=== PATIENT | female | born 1940 | race Caucasian/White ===

== ENCOUNTER 2023-08-14 10:38 | Observation (INO) | payer OTHER ==
[~2023-08-14] VITALS: Ht 152.4 cm; Wt 47.4 kg
[2023-08-14 11:17] LABS: BASOPHILS ABSOLUTE AUTO 0.04 K/mm3 (0.00-0.23); BASOPHILS PERCENT AUTO 1 % (0-2); EOSINOPHILS ABSOLUTE AUTO 0.08 K/mm3 (0.00-0.68); EOSINOPHILS PERCENT AUTO 1 % (0-6); Hematocrit 37.7 % (33.0-51.0); Hemoglobin 12.3 g/dL (11.5-16.0); IMMATURE GRAN ABSOLUTE AUTO 0.02 K/mm3 (0.00-0.10); IMMATURE GRAN PERCENT AUTO 0 % (0-1); LYMPHOCYTES ABSOLUTE AUTO 1.09 K/mm3 (0.84-5.20); LYMPHOCYTES PERCENT AUTO 13 % (21-46); MONOCYTES ABSOLUTE AUTO 0.47 K/mm3 (0.16-1.47); MONOCYTES PERCENT AUTO 6 % (4-13); Mean Corpuscular HGB 28.9 pg (26.0-34.0); Mean Corpuscular HGB Conc 32.6 g/dL (31.5-36.5); Mean Corpuscular Volume 89 fL (80-100); Mean Platelet Volume 10.4 fL (9.1-12.4); NEUTROPHILS ABSOLUTE AUTO 6.73 K/mm3 (1.96-9.15); NEUTROPHILS PERCENT AUTO 80 % (41-73); Platelet Count 215 K/mm3 (150-400); RDW Coefficient Variation 12.8 % (11.7-14.2); RDW Standard Deviation 41.2 fL (35.1-46.3); Red Blood Cell Count 4.25 M/mm3 (3.80-5.20); White Blood Cell Count 8.43 K/mm3 (4.00-11.30)
[2023-08-14 11:30] LABS: Albumin, Blood 3.2 g/dL (3.4-5.0); Albumin/Globulin Ratio 0.8 (0.8-1.8); Bilirubin, Total 0.8 mg/dL (0.1-1.0); Bun/Creatinine Ratio 37.9 (12.0-20.0); Calcium, Blood 9.3 mg/dL (8.5-10.1); Creatinine, Blood 0.71 mg/dL (0.40-1.00); Potassium, Blood 4.6 mmol/L (3.5-5.5); Total Protein, Blood 7.2 g/dL (6.4-8.2)
[2023-08-14] MEDS ORDERED: Aspirin 325 MG Tab PO ONE (13:15)
[2023-08-14] MEDS ORDERED: Clopidogrel Bisulfate 300 MG Cap PO ONE (13:15)
[2023-08-14] MEDS ORDERED: Acetaminophen 325 MG TABLET PO PRN (13:20)
[2023-08-14] MEDS ORDERED: METOPROLOL TART25 MG PO (14:17)
[2023-08-14] MEDS ORDERED: LOSA50 PO (14:18)
[2023-08-14] MEDS ORDERED: TOLTERODINE TART2 M1 PO (14:18)
[2023-08-14] MEDS ORDERED: FOSAMAX70 MG PO (14:19)
[2023-08-14] MEDS ORDERED: ATORVASTATIN CA20 MG PO (14:20)
[2023-08-14 16:14] VITALS: BP 183/80
--- NOTE | 2023-08-14 16:14 | NUR ---
ADMIT PT ORIENTED TO ROOM. CALL LIGHT IN REACH. WATER PROVIDED. PT DENIES PAIN AT THIS TIME. VS REVIEWED.
[2023-08-14] MEDS ORDERED: Alendronate Sodium 70 MG Tablet PO SCH (16:15)
[2023-08-14] MEDS ORDERED: Flonase 0.05% Nasal (16:18)
[2023-08-14] MEDS ORDERED: Fluticasone 0.05% Nasal Spray PRN (16:20)
[2023-08-14] MEDS ORDERED: ASPIR 8181 M1 PO (17:27)
--- NOTE | 2023-08-14 18:29 | NUR ---
ADMIT PT ADMITTED TO ROOM 357 AT 1611. PT ORIENTED TO ROOM. ECHO COMPLETED IN ROOM UPON ADMISSION. MRI PLANNED FOR THIS EVENING SOMETIME. PT STATES SHE HAS NO PAIN AND IS FEELING "MORE LIKE MYSELF". SPEECH MOSTLY CLEAR, SOME SLURRING. PT STATES THIS IS NORMAL. PT HOPEFUL TO DC TOMORROW. NO OTHER ACUTE CHANGES IN ASSESSMENT AT THIS TIME. VS REVIEWED. CALL LIGHT IN REACH. DENIES OTHER NEEDS AT THIS TIME. PT DAUGHTER, MONA UPDATED OVER THE PHONE.
[2023-08-14 19:26] VITALS: BP 170/81
[2023-08-14] MEDS ORDERED: Docusate Sodium 100 MG Cap PO SCH (21:00)
[2023-08-14] MEDS ORDERED: Atorvastatin 40 MG Tab PO SCH (21:00)
[2023-08-15 03:26] VITALS: BP 144/59
[2023-08-15 04:45] LABS: Hematocrit 36.9 % (33.0-51.0); Hemoglobin 12.3 g/dL (11.5-16.0); Mean Corpuscular HGB 29.1 pg (26.0-34.0); Mean Corpuscular HGB Conc 33.3 g/dL (31.5-36.5); Mean Corpuscular Volume 87 fL (80-100); Mean Platelet Volume 10.2 fL (9.1-12.4); Platelet Count 196 K/mm3 (150-400); RDW Coefficient Variation 12.7 % (11.7-14.2); RDW Standard Deviation 40.2 fL (35.1-46.3); Red Blood Cell Count 4.23 M/mm3 (3.80-5.20); White Blood Cell Count 8.38 K/mm3 (4.00-11.30)
[2023-08-15 05:08] LABS: Anion Gap 8 mmol/L (3-11); Blood Urea Nitrogen 21 mg/dL (8-24); Bun/Creatinine Ratio 33.2 (12.0-20.0); CHOL/HDL RATIO 2.2; CO2, Blood 27 mmol/L (21-32); Calcium, Blood 8.5 mg/dL (8.5-10.1); Chloride, Blood 109 mmol/L (98-108); Cholesterol 107 mg/dL (50-200); Creatinine, Blood 0.63 mg/dL (0.40-1.00); Glomerular Filtration Rate 89 (60-); Glucose, Blood 101 mg/dL (70-99); HDL Cholesterol 49 mg/dL (>39); LDL/HDL RATIO 0.9; Low Density Lipoprotein Chol 44 mg/dL (0-110); Potassium, Blood 3.6 mmol/L (3.5-5.5); Sodium, Blood 140 mmol/L (136-145); Triglycerides 72 mg/dL (30-160); Very Low Density Lipoprot Chol 14 mg/dL (6-32)
[2023-08-15] MEDS ORDERED: Losartan Potassium 50 MG Tab PO SCH (09:00)
[2023-08-15] MEDS ORDERED: Aspirin 81 MG Chew PO SCH (09:00)
[2023-08-15] MEDS ORDERED: Clopidogrel Bisulfate 75 MG Tab PO SCH (09:00)
[2023-08-15] MEDS ORDERED: Enoxaparin 40 MG/0.4 ML SYR SC SCH (09:00)
[2023-08-15] MEDS ORDERED: Metoprolol Tartrate 25 MG Tab PO SCH (09:00)
[2023-08-15 09:24] VITALS: BP 152/85
[2023-08-15] MEDS ORDERED: TOPROL XL25 MG PO (11:19)
[2023-08-15] MEDS ORDERED: CLOP75 PO (11:29)
--- NOTE | 2023-08-15 12:01 | NUR ---
Patient discharged per MD orders, PIV removed and catheter intact, patient verbalized an understanding of all instructions given, written instructions and educational materials also printed and given to patient.
== END 2023-08-15 11:35 | disposition home or self-care (01) ==
LOC: ER 10:38 → MEDS 10:39 → ENPENDDIS 08-15 11:09 → MEDS 08-15 11:35
PROVIDERS: Emergency Medicine; ADMIT Internal Medicine
DX: I63.9 Cerebral infarction, unspecified (principal); I10 Essential (primary) hypertension; E78.00 Pure hypercholesterolemia, unspecified; I25.2 Old myocardial infarction; Z79.82 Long term (current) use of aspirin
CPT/HCPCS: 36415; 70450; 70551; 71045; 80048; 80053; 80061; 82947; 83036; 85025; 85027; 92610; 93005; 93010; 93306; 93880; 97161; 97530; 99285-25; A9270; G0378; J1650

== ENCOUNTER 2024-08-22 11:24 | Day surgery (SDC) | payer OTHER ==
[~2024-08-22] VITALS: Ht 152.4 cm; Wt 46.2 kg
[~2024-08-22 11:24] MED LIST: ASPIR 8181 M1 PO; ATORVASTATIN CA20 MG PO; CLOP75 PO; FOSAMAX70 MG PO; Flonase 0.05% Nasal; LOSA50 PO; METOPROLOL TART25 MG PO; TOLTERODINE TART2 M1 PO; TOPROL XL25 MG PO
[2024-08-22] MEDS ORDERED: CeFAZolin Sodium 2,000 MG VIAL ONE (11:33)
[2024-08-22] MEDS ORDERED: Oxybutynin Chlo10 MG PO (12:12)
[2024-08-22] MEDS ORDERED: Ondansetron HCl 2 MG / ML 2ML Vial ONE (12:58)
[2024-08-22] MEDS ORDERED: FentaNYL Citrate 50 MCG/ML 2 ML Injection ONE ×2 (13:02→13:51)
[2024-08-22] MEDS ORDERED: Bupivacaine 0.5% HCl 5 MG/ML 30MLVIAL XX ONE (13:11)
[2024-08-22] MEDS ORDERED: HydrALAZINE HCl 20 MG / ML 1ML Vial ONE (13:43)
--- NOTE | 2024-08-22 14:35 | NUR ---
08/22/24 1794 Yaz Jeong REPORT RECEIVED FROM MARCELINO AND RN. PT TO PACU ASLEEP WITH ORAL AIRWAY IN PLACE. PT CURRENTLY AROUSABLE TO VERBAL STIMULI AND FOLLOWS COMMANDS, AND ANSWERS QUESTIONS. PT STATES RIGHT BREAST IS "SORE". CURRENTLY DOES NOT RATE PAIN ON NUMERICAL PAIN SCALE. PT DENEIS NAUSEA. VSS.
--- NOTE | 2024-08-22 14:47 | NUR ---
08/22/[id number] briot and verified when patient can restart plavix and when pt can shower. verbal orders received
[2024-08-22] MEDS ORDERED: HYDROcodone 5-APAP 325 TAB ONE (15:23)
[2024-08-22 15:32] VITALS: BP 123/61
== END 2024-08-22 15:58 | disposition home or self-care (01) ==
LOC: ORSCSDS 11:24 → NM 11:30 → ORSCSDS 15:58
PROVIDERS: Surgery
PROC: 07B50ZX Excision of Right Axillary Lymphatic, Open Approach, Diagnostic (ICD-10-PCS; principal; 2024-08-22 12:00)
PROC: 0HBT0ZZ Excision of Right Breast, Open Approach (ICD-10-PCS; principal; 2024-08-22 12:00)
DX: C50.111 Malignant neoplasm of central portion of right female breast (principal); C77.3 Secondary and unspecified malignant neoplasm of axilla and upper limb lymph nodes; Z17.0 Estrogen receptor positive status [ER+]; Z17.21 Progesterone receptor positive status; Z17.32 Human epidermal growth factor receptor 2 negative status; I10 Essential (primary) hypertension; E78.5 Hyperlipidemia, unspecified; Z87.891 Personal history of nicotine dependence; I69.328 Other speech and language deficits following cerebral infarction; I69.398 Other sequelae of cerebral infarction; Z79.899 Other long term (current) drug therapy; Z79.02 Long term (current) use of antithrombotics/antiplatelets
CPT/HCPCS: 38792; 88307; 88342; A9270; A9520; J0360; J0690; J2405; J2704; J3010; J7120; Q9968

== ENCOUNTER 2024-09-04 08:37 | Day surgery (SDC) | payer OTHER ==
[~2024-09-04] VITALS: Ht 152.4 cm; Wt 45.5 kg
[2024-09-04] VITALS (8 sets, daily range): BP systolic 141–180; BP diastolic 65–84
[~2024-09-04 08:37] MED LIST changes: +CeFAZolin Sodium 2,000 MG VIAL ONE; +CeFAZolin Sodium 2,000 MG in NS 100 ML IV SCH; -LOSA50 PO; +LOSARTAN POTAS100 M1 PO; +OXYB5 PO
[2024-09-04] MEDS ORDERED: Ondansetron HCl 2 MG / ML 2ML Vial ONE (09:20)
[2024-09-04] MEDS ORDERED: Ketorolac Tromethamine 30mg Vial ONE (09:20)
[2024-09-04] MEDS ORDERED: FentaNYL Citrate 50 MCG/ML 2 ML Injection ONE (09:20)
[2024-09-04] MEDS ORDERED: Dexamethasone Sod Phos 10 MG/ML 1ML VIAL ONE (09:20)
--- NOTE | 2024-09-04 09:35 | NUR ---
PATIENT ACCOMPANIED TO DAY SURGERY WITH JORDON, WHO IDENTIFIED THEMSELVES A NEIGHBOR AND RIDE HOME. ARIA REQUESTED JORDON TO STAY FOR ADMISSION PROCESS TO KEEP HER COMPANY. History, Chart, Medications and Allergies reviewed before start of procedure. Patient confirms NPO status and agrees with scheduled surgery.
[2024-09-04] MEDS ORDERED: Bupivacaine 0.5% HCl 5 MG/ML 30MLVIAL ONE (10:40)
[2024-09-04] MEDS ORDERED: ePHEDrine Sulfate 50 MG/ML 1ML Injection ONE (11:15)
[2024-09-04] MEDS ORDERED: FentaNYL Citrate 50 MCG/ML 2 ML Injection IV PRN ×2 (11:45→11:50)
[2024-09-04] MEDS ORDERED: HYDROmorphone HCl/Pf 1MG SYR IV PRN (11:50)
[2024-09-04] MEDS ORDERED: Ondansetron HCl 2 MG / ML 2ML Vial IV PRN (11:50)
[2024-09-04] MEDS ORDERED: HydrALAZINE HCl 20 MG / ML 1ML Vial IV PRN (11:50)
[2024-09-04] MEDS ORDERED: Albuterol 2.5 MG/3 ML VIAL INH PRN (11:50)
[2024-09-04] MEDS ORDERED: Metoclopramide HCl 5MG / ML 2ML Vial IV PRN (11:50)
[2024-09-04] MEDS ORDERED: HYDROcodone 5-APAP 325 TAB PO PRN (12:00)
--- NOTE | 2024-09-04 13:13 | NUR ---
DISCHARGE NOTE PT A&OX4, BREATHING RA, TOLERATING PO INTAKE, VSS. PT DRESSED WITH ASSISTANCE. Discharge instructions reviewed with patient. Patient verbalizes understanding. Copy given to patient to take home. Dressing to procedure site clean, dry, intact with no visible drainage, swelling, erythema or bruising noted.BREAST BINDER IN PLACE. Discharged via wheelchair to private car for ride home.
== END 2024-09-04 13:10 | disposition home or self-care (01) ==
LOC: ORSCMMR 08:37 → ORD 10:00 → ORSCMMR 10:00
PROVIDERS: Surgery
PROC: 0HBT0ZZ Excision of Right Breast, Open Approach (ICD-10-PCS; principal; 2024-09-04 10:00)
DX: C50.111 Malignant neoplasm of central portion of right female breast (principal); Z17.0 Estrogen receptor positive status [ER+]; Z17.21 Progesterone receptor positive status; Z17.32 Human epidermal growth factor receptor 2 negative status; I10 Essential (primary) hypertension; E78.5 Hyperlipidemia, unspecified; I63.9 Cerebral infarction, unspecified; Z79.02 Long term (current) use of antithrombotics/antiplatelets; Z79.899 Other long term (current) drug therapy
CPT/HCPCS: 88307; J0690; J1100; J1885; J2405; J2704; J3010; J7120

== ENCOUNTER 2024-12-09 17:23 | Emergency (ER) | payer OTHER ==
[~2024-12-09] VITALS: Ht 157.5 cm; Wt 47.6 kg
[~2024-12-09 17:23] MED LIST changes: -CeFAZolin Sodium 2,000 MG VIAL ONE; -CeFAZolin Sodium 2,000 MG in NS 100 ML IV SCH
[2024-12-09] MEDS ORDERED: ANASTROZOLE1 M7 PO (17:40)
[2024-12-09] MEDS ORDERED: NS 1,000 ML IV SCH (17:50)
[2024-12-09 17:56] LABS: BASOPHILS ABSOLUTE AUTO 0.03 K/mm3 (0.00-0.23); BASOPHILS PERCENT AUTO 1 % (0-2); EOSINOPHILS ABSOLUTE AUTO 0.06 K/mm3 (0.00-0.68); EOSINOPHILS PERCENT AUTO 1 % (0-6); Hematocrit 29.4 % (33.0-51.0); Hemoglobin 9.8 g/dL (11.5-16.0); IMMATURE GRAN ABSOLUTE AUTO 0.02 K/mm3 (0.00-0.10); IMMATURE GRAN PERCENT AUTO 0 % (0-1); LYMPHOCYTES ABSOLUTE AUTO 0.70 K/mm3 (0.84-5.20); LYMPHOCYTES PERCENT AUTO 16 % (21-46); MONOCYTES ABSOLUTE AUTO 0.17 K/mm3 (0.16-1.47); MONOCYTES PERCENT AUTO 4 % (4-13); Mean Corpuscular HGB Conc 33.3 g/dL (31.5-36.5); Mean Corpuscular Volume 88 fL (80-100); NEUTROPHILS ABSOLUTE AUTO 3.51 K/mm3 (1.96-9.15); NEUTROPHILS PERCENT AUTO 78 % (41-73); NRBC ABSOLUTE 0.00 K/mm3 (0.00-0.02); NRBC Auto 0.0 /100 WBC (0.0-0.2); Platelet Count 134 K/mm3 (150-400); RDW Coefficient Variation 14.1 % (11.7-14.2); RDW Standard Deviation 45.1 fL (35.1-46.3)
[2024-12-09 18:26] LABS: Alanine Aminotransfer (ALT/SGP 24.0 U/L (12-78); Albumin, Blood 2.9 g/dL (3.4-5.0); Albumin/Globulin Ratio 0.8 (0.8-1.8); Anion Gap 10.0 mmol/L (3-11); Aspartate Aminotrans (AST/SGOT 24.0 U/L (12-37); Bilirubin, Total 0.8 mg/dL (0.1-1.0); Blood Urea Nitrogen 39.0 mg/dL (8-24); CO2, Blood 23.0 mmol/L (21-32); Calcium, Blood 9.2 mg/dL (8.5-10.1); Chloride, Blood 108.0 mmol/L (98-108); Creatinine, Blood 1.42 mg/dL (0.40-1.00); Globulin, Blood 3.6 g/dL (2.2-4.0); Glucose, Blood 105.0 mg/dL (70-99); Potassium, Blood 3.7 mmol/L (3.5-5.5); Sodium, Blood 137.0 mmol/L (136-145); Total Protein, Blood 6.5 g/dL (6.4-8.2)
[2024-12-09 19:00] VITALS: BP 169/77
== END 2024-12-09 20:33 | disposition home or self-care (01) ==
LOC: ER 17:23
PROVIDERS: Emergency Medicine
DX: N17.9 Acute kidney failure, unspecified (principal); E86.1 Hypovolemia; R19.7 Diarrhea, unspecified; I25.2 Old myocardial infarction; Z86.73 Personal history of transient ischemic attack (TIA), and cerebral infarction without residual deficits; Z85.3 Personal history of malignant neoplasm of breast; Z91.018 Allergy to other foods; Z79.02 Long term (current) use of antithrombotics/antiplatelets; Z79.899 Other long term (current) drug therapy
CPT/HCPCS: 80053; 85025; 93005; 93010; 96360; 99284-25; J7030

== ENCOUNTER 2024-12-10 13:59 | Emergency (ER) | payer OTHER ==
[~2024-12-10] VITALS: Ht 154.9 cm; Wt 45.4 kg
[~2024-12-10 13:59] MED LIST changes: +ANASTROZOLE1 M7 PO
[2024-12-10] MEDS ORDERED: NS 1,000 ML IV SCH (14:15)
[2024-12-10 14:53] LABS: BASOPHILS ABSOLUTE AUTO 0.03 K/mm3 (0.00-0.23); BASOPHILS PERCENT AUTO 1 % (0-2); EOSINOPHILS ABSOLUTE AUTO 0.04 K/mm3 (0.00-0.68); EOSINOPHILS PERCENT AUTO 1 % (0-6); Hematocrit 28.8 % (33.0-51.0); Hemoglobin 9.7 g/dL (11.5-16.0); IMMATURE GRAN ABSOLUTE AUTO 0.03 K/mm3 (0.00-0.10); IMMATURE GRAN PERCENT AUTO 1 % (0-1); LYMPHOCYTES ABSOLUTE AUTO 0.67 K/mm3 (0.84-5.20); LYMPHOCYTES PERCENT AUTO 18 % (21-46); MONOCYTES ABSOLUTE AUTO 0.16 K/mm3 (0.16-1.47); MONOCYTES PERCENT AUTO 4 % (4-13); Mean Corpuscular HGB Conc 33.7 g/dL (31.5-36.5); Mean Corpuscular Volume 87 fL (80-100); NEUTROPHILS ABSOLUTE AUTO 2.78 K/mm3 (1.96-9.15); NEUTROPHILS PERCENT AUTO 75 % (41-73); NRBC ABSOLUTE 0.00 K/mm3 (0.00-0.02); NRBC Auto 0.0 /100 WBC (0.0-0.2); Platelet Count 130 K/mm3 (150-400); RDW Coefficient Variation 13.6 % (11.7-14.2); RDW Standard Deviation 43.7 fL (35.1-46.3)
[2024-12-10 14:57] LABS: Source, Urine Clean Catch
[2024-12-10 15:10] LABS: Bilirubin, Urine Neg (Neg); Color, Urine Yellow (P-Yellow); Glucose Qualitative, Urine Neg (Neg); Ketones, Urine Neg (Neg); Leukocyte Esterase, Urine 1+ (Neg); Protein, Urine Neg (Neg); Specific Gravity, Urine 1.015 (1.003-1.022); Urobilinogen, Urine NORM (Normal)
[2024-12-10 15:31] LABS: Red Blood Cells, Urine 0-2 /hpf (0-2)
[2024-12-10 15:51] LABS: Anion Gap 6.0 mmol/L (3-11); Blood Urea Nitrogen 24.0 mg/dL (8-24); CO2, Blood 25.0 mmol/L (21-32); Calcium, Blood 8.7 mg/dL (8.5-10.1); Chloride, Blood 112.0 mmol/L (98-108); Creatinine, Blood 1.16 mg/dL (0.40-1.00); Glucose, Blood 97.0 mg/dL (70-99); Magnesium, Blood 1.6 mg/dL (1.6-2.4); Potassium, Blood 3.8 mmol/L (3.5-5.5); Sodium, Blood 139.0 mmol/L (136-145); Thyroid Stimulating Hormone 1.28 uIU/mL (0.360-4.800)
[2024-12-10 16:15] VITALS: BP 157/140
== END 2024-12-10 16:41 | disposition home or self-care (01) ==
LOC: ER 13:59
PROVIDERS: Emergency Medicine
DX: E86.0 Dehydration (principal); R42 Dizziness and giddiness; D64.9 Anemia, unspecified; N18.9 Chronic kidney disease, unspecified; I25.2 Old myocardial infarction; Z86.73 Personal history of transient ischemic attack (TIA), and cerebral infarction without residual deficits; Z91.018 Allergy to other foods; Z79.02 Long term (current) use of antithrombotics/antiplatelets; Z79.899 Other long term (current) drug therapy
CPT/HCPCS: 80048; 81001; 82607; 83735; 84439; 84443; 85025; 93005; 93010; 99284-25; J7030

== ENCOUNTER 2024-12-25 17:01 | Inpatient (IN) | payer OTHER ==
[~2024-12-25] VITALS: Ht 152.4 cm; Wt 46.2 kg
[2024-12-25 18:15] LABS: BASOPHILS ABSOLUTE AUTO 0.05 K/mm3 (0.00-0.23); BASOPHILS PERCENT AUTO 1 % (0-2); EOSINOPHILS ABSOLUTE AUTO 0.03 K/mm3 (0.00-0.68); EOSINOPHILS PERCENT AUTO 0 % (0-6); Hematocrit 29.3 % (33.0-51.0); Hemoglobin 10.1 g/dL (11.5-16.0); IMMATURE GRAN ABSOLUTE AUTO 0.06 K/mm3 (0.00-0.10); IMMATURE GRAN PERCENT AUTO 1 % (0-1); LYMPHOCYTES ABSOLUTE AUTO 1.07 K/mm3 (0.84-5.20); LYMPHOCYTES PERCENT AUTO 14 % (21-46); MONOCYTES ABSOLUTE AUTO 0.66 K/mm3 (0.16-1.47); MONOCYTES PERCENT AUTO 8 % (4-13); Mean Corpuscular HGB Conc 34.5 g/dL (31.5-36.5); Mean Corpuscular Volume 85 fL (80-100); NEUTROPHILS ABSOLUTE AUTO 5.96 K/mm3 (1.96-9.15); NEUTROPHILS PERCENT AUTO 76 % (41-73); NRBC ABSOLUTE 0.00 K/mm3 (0.00-0.02); NRBC Auto 0.0 /100 WBC (0.0-0.2); Platelet Count 310 K/mm3 (150-400); RDW Coefficient Variation 14.6 % (11.7-14.2); RDW Standard Deviation 45.2 fL (35.1-46.3)
[2024-12-25 18:59] LABS: Alanine Aminotransfer (ALT/SGP 27.0 U/L (12-78); Albumin, Blood 2.8 g/dL (3.4-5.0); Albumin/Globulin Ratio 0.7 (0.8-1.8); Anion Gap 9.0 mmol/L (3-11); Aspartate Aminotrans (AST/SGOT 27.0 U/L (12-37); Bilirubin, Total 0.7 mg/dL (0.1-1.0); Blood Urea Nitrogen 28.0 mg/dL (8-24); CO2, Blood 27.0 mmol/L (21-32); Calcium, Blood 8.5 mg/dL (8.5-10.1); Chloride, Blood 105.0 mmol/L (98-108); Creatinine, Blood 1.34 mg/dL (0.40-1.00); Globulin, Blood 4.2 g/dL (2.2-4.0); Glucose, Blood 111.0 mg/dL (70-99); Magnesium, Blood 1.9 mg/dL (1.6-2.4); Phosphorus, Blood 2.2 mg/dL (2.5-4.9); Potassium, Blood 2.8 mmol/L (3.5-5.5); Sodium, Blood 138.0 mmol/L (136-145); Total Protein, Blood 7.0 g/dL (6.4-8.2)
[2024-12-25] MEDS ORDERED: Potassium Chl 10MEQ/Water100ML 100 ML IV ONE (21:40)
[2024-12-25] MEDS ORDERED: NS 1,000 ML IV SCH (21:40)
[2024-12-25] MEDS ORDERED: Ondansetron HCl 2 MG / ML 2ML Vial IV ONE (21:45)
[2024-12-26] MEDS ORDERED: OXYB5 PO (02:10)
[2024-12-26] MEDS ORDERED: Ondansetron HCl 2 MG / ML 2ML Vial IV PRN (02:20)
[2024-12-26] MEDS ORDERED: FLU VACC TS2025(65UP)/MF59C/PF 45 MCG/0.5 ML SYRINGE IM SCH (02:25)
[2024-12-26] MEDS ORDERED: NS 1,000 ML IV SCH (02:25)
[2024-12-26] MEDS ORDERED: Potassium Phosphate Dibasic 30 MM in Dextrose 5% 500 ML IV STA (02:44)
[2024-12-26 02:53] VITALS: BP 128/66
[2024-12-26 03:37] LABS: Source, Urine Clean Catch
[2024-12-26 03:51] VITALS: BP 151/86
[2024-12-26 04:14] LABS: Bilirubin, Urine Neg (Neg); Color, Urine Yellow (P-Yellow); Glucose Qualitative, Urine Neg (Neg); Ketones, Urine Neg (Neg); Leukocyte Esterase, Urine 3+ (Neg); Protein, Urine 2+ (Neg); Specific Gravity, Urine 1.010 (1.003-1.022); Urobilinogen, Urine NORM (Normal)
[2024-12-26 04:58] LABS: Red Blood Cells, Urine 0-2 /hpf (0-2); White Blood Cells, Urine TNTC /hpf (0-5)
[2024-12-26 05:29] LABS: BASOPHILS ABSOLUTE AUTO 0.02 K/mm3 (0.00-0.23); BASOPHILS PERCENT AUTO 0 % (0-2); EOSINOPHILS ABSOLUTE AUTO 0.03 K/mm3 (0.00-0.68); EOSINOPHILS PERCENT AUTO 1 % (0-6); Hematocrit 25.5 % (33.0-51.0); Hemoglobin 8.7 g/dL (11.5-16.0); IMMATURE GRAN ABSOLUTE AUTO 0.06 K/mm3 (0.00-0.10); IMMATURE GRAN PERCENT AUTO 1 % (0-1); LYMPHOCYTES ABSOLUTE AUTO 0.59 K/mm3 (0.84-5.20); LYMPHOCYTES PERCENT AUTO 10 % (21-46); MONOCYTES ABSOLUTE AUTO 0.45 K/mm3 (0.16-1.47); MONOCYTES PERCENT AUTO 7 % (4-13); Mean Corpuscular HGB Conc 34.1 g/dL (31.5-36.5); Mean Corpuscular Volume 86 fL (80-100); NEUTROPHILS ABSOLUTE AUTO 4.97 K/mm3 (1.96-9.15); NEUTROPHILS PERCENT AUTO 81 % (41-73); NRBC ABSOLUTE 0.00 K/mm3 (0.00-0.02); NRBC Auto 0.0 /100 WBC (0.0-0.2); Platelet Count 271 K/mm3 (150-400); RDW Coefficient Variation 14.6 % (11.7-14.2); RDW Standard Deviation 45.7 fL (35.1-46.3)
[2024-12-26 05:38] LABS: Prothrombin Time Results 12.6 Sec (9.7-11.5)
[2024-12-26 06:21] LABS: Alanine Aminotransfer (ALT/SGP 22.0 U/L (12-78); Albumin, Blood 2.3 g/dL (3.4-5.0); Albumin/Globulin Ratio 0.7 (0.8-1.8); Anion Gap 5.0 mmol/L (3-11); Aspartate Aminotrans (AST/SGOT 20.0 U/L (12-37); Bilirubin, Total 0.7 mg/dL (0.1-1.0); Blood Urea Nitrogen 26.0 mg/dL (8-24); CO2, Blood 29.0 mmol/L (21-32); Calcium, Blood 7.6 mg/dL (8.5-10.1); Chloride, Blood 107.0 mmol/L (98-108); Creatinine, Blood 1.23 mg/dL (0.40-1.00); Globulin, Blood 3.3 g/dL (2.2-4.0); Glucose, Blood 107.0 mg/dL (70-99); Potassium, Blood 2.8 mmol/L (3.5-5.5); Sodium, Blood 138.0 mmol/L (136-145); Total Protein, Blood 5.6 g/dL (6.4-8.2)
[2024-12-26 06:55] LABS: Influenza A, PCR NEGATIVE (NEGATIVE); Influenza B, PCR NEGATIVE (NEGATIVE); Resp Syncytial Virus, PCR NEGATIVE (NEGATIVE); SARS-Cov-2 (COVID-19) PCR, MMC NEGATIVE (NEGATIVE)
[2024-12-26 08:23] VITALS: BP 124/62
[2024-12-26] MEDS ORDERED: Enoxaparin 30 MG/0.3 ML SYR SC SCH (09:00)
[2024-12-26 11:12] VITALS: BP 113/68
[2024-12-26] MEDS ORDERED: ALEN70 PO (11:19)
[2024-12-26] MEDS ORDERED: CefTRIAXone Sodium 1,000 MG in NS 100 ML IV SCH (15:00)
[2024-12-26 15:40] VITALS: BP 125/74
--- NOTE | 2024-12-26 18:16 | NUR ---
SHIFT SUMMARY PT A&OX4, ON 1L O2 NC, TOLERATING PO, VOIDING URINE, AND DENIED PAIN. PT WORKED W/ PHYSICAL THERAPY THIS SHIFT, SEE THERAPY NOTE. ST EVAL COMPLETE, SEE SPEECH NOTE. ORAL K GIVEN PER ORDER. NO OTHER ACUTE CHANGES. CALL LIGHT WITHIN REACH AND PT ABLE TO MAKE NEEDS KNOWN.
[2024-12-26 20:00] VITALS: BP 139/73
[2024-12-27 00:20] VITALS: BP 113/68
[2024-12-27 04:07] VITALS: BP 112/68
--- NOTE | 2024-12-27 05:53 | NUR ---
FUEL CELL BUILDER SUMMARY NO ACUTE EVENTS. PT IS A/OX4. ABLE TO MAKE NEEDS KNOWN. PT ON TELE WITH NO EVENTS REPORTED OVER NIGHT. PT IS A 1PA TO BSC. BED ALARM IN PLACE. CALL LIGHT ACCESSIBLE. PT HAS NOT HAD A BOWEL MOVEMENT THIS SHIFT. PT REMAINS IN ISO FOR ENTERIC PRECAUTIONS PENDING GI PANEL. STOOL SAMPLE HAS NOT BEEN SENT. CARE WILL CONTINUE UNTIL REPORT GIVEN TO ONCOMING NURSE.
[2024-12-27 07:35] VITALS: BP 109/83
--- NOTE | 2024-12-27 08:27 | NUR ---
PALLIATIVE CARE NOTE: CONSULT RECEIVED FOR CANCER, AD/POLST AND ADVANCED CARE PLANNING. REVIEWED MEDICAL RECORD. NOP POLST/AD ON FILE. FOUND POLST ON OPR WITH DNR/LIMITED DIRECTIVES. PT IS CURRENTL A FULL CODE. WILL ROUND ON PT TODAY.
--- NOTE | 2024-12-27 09:07 | NUR ---
ROUNDED ON PATIENT. SHE HAS A POLST ON FILE THAT REFLECTED DNR AND LIMITED INTERVENTION. REVIEWED WITH PATIENT AND SHE EXPRESSED THAT THIS IS STILL REFLECTS HER WISHES. UPDATED PROVIDER AND CODE STATUS CHANGED IN COMPUTER. UPDATED SURGICAL NURSE PRACTITIONER AND BSRN.
[2024-12-27 12:27] VITALS: BP 121/69
[2024-12-27 15:44] VITALS: BP 131/68
[2024-12-27] MEDS ORDERED: FentaNYL Citrate 50 MCG/ML 2 ML Injection IV PRN (17:35)
[2024-12-27] MEDS ORDERED: Multivitamins-Minerals Liquid 15 ML Oral Syringe PO SCH (18:05)
--- NOTE | 2024-12-27 18:09 | NUR ---
PATIENT RESTED IN BED MOST OF DAY UP TO COMMODE NEEDED. PATIENT URINATED THIS AM THEN NOTHING MOST OF SHIFT, BLADDER SCAN DONE RESULTS LESS THAN ORDER FOR STRAIGHT CATH. PATIENT ABLE TO GO SHORTLY AFTER. PATIENT HOPEFULL FOR DISCHARGE TOMORROW BASED ON LABS. CALL LIGHT WITHIN REACH.
[2024-12-27 18:30] LABS: Hematocrit 27.0 % (33.0-51.0); Hemoglobin 9.2 g/dL (11.5-16.0); Mean Corpuscular HGB Conc 34.1 g/dL (31.5-36.5); Mean Corpuscular Volume 86 fL (80-100); NRBC ABSOLUTE 0.00 K/mm3 (0.00-0.02); NRBC Auto 0.0 /100 WBC (0.0-0.2); Platelet Count 275 K/mm3 (150-400); RDW Coefficient Variation 14.6 % (11.7-14.2); RDW Standard Deviation 46.0 fL (35.1-46.3)
[2024-12-27 18:54] LABS: BAND PERCENT MAN 7 % (0-8); BASOPHILS ABSOLUTE MAN 0.05 K/mm3 (0.00-0.23); BASOPHILS PERCENT MAN 1 % (0-2); EOSINOPHILS ABSOLUTE MAN 0.00 K/mm3 (0.00-0.68); EOSINOPHILS PERCENT MAN 0 % (0-6); LYMPHOCYTES % ATYPICAL MANUAL 1 % (0-0); LYMPHOCYTES ABSOLUTE MAN 0.60 K/mm3 (0.84-5.20); LYMPHOCYTES PERCENT MAN 11 % (21-46); MONOCYTES ABSOLUTE MAN 0.60 K/mm3 (0.16-1.47); MONOCYTES PERCENT MAN 12 % (4-13); NEUTROPHILS ABSOLUTE MAN 3.78 K/mm3 (1.96-9.15); SEG NEUTROPHILS PERCENT MAN 68 % (41-73)
[2024-12-27 19:00] LABS: Alanine Aminotransfer (ALT/SGP 28.0 U/L (12-78); Albumin, Blood 2.2 g/dL (3.4-5.0); Albumin/Globulin Ratio 0.6 (0.8-1.8); Anion Gap 6.0 mmol/L (3-11); Aspartate Aminotrans (AST/SGOT 31.0 U/L (12-37); Bilirubin, Total 0.5 mg/dL (0.1-1.0); Blood Urea Nitrogen 16.0 mg/dL (8-24); CO2, Blood 29.0 mmol/L (21-32); Calcium, Blood 7.8 mg/dL (8.5-10.1); Chloride, Blood 109.0 mmol/L (98-108); Creatinine, Blood 0.8 mg/dL (0.40-1.00); Globulin, Blood 3.6 g/dL (2.2-4.0); Glucose, Blood 119.0 mg/dL (70-99); Magnesium, Blood 1.4 mg/dL (1.6-2.4); Potassium, Blood 3.7 mmol/L (3.5-5.5); Sodium, Blood 140.0 mmol/L (136-145); Total Protein, Blood 5.8 g/dL (6.4-8.2)
[2024-12-27 22:51] VITALS: BP 134/74
[2024-12-28] MEDS ORDERED: Magnesium Sulf 2 GM/Water 50ML 50 ML IV ONE (00:10)
[2024-12-28 00:24] VITALS: BP 131/86
--- NOTE | 2024-12-28 02:38 | NUR ---
GI PANEL DISCONTUNIED PER PROTOCOL PT ADMIT ON 12/26/24 REPORTING N/V/D. PT HAS NOT HAD A BM SINCE ADMIT TO THE MED FLOOR IN OVER 24 HOURS. GI PANEL D/C PER PROTOCOL. R/O ISOLATION DISCONTINUED.
--- NOTE | 2024-12-28 05:25 | NUR ---
SHIFT SUMMARY REPORTS B/L LOW ABDOMINAL PRESSURE-LIKE PAIN RELATED TO CONSTIPATION, DECLINING MEDICATION PER EMAR. DOES HAVE BENEFIT FROM HEATING PAD. DECLINED EVENING PROBIOTIC. DISPOSITION SOFTENS WHEN DISCUSSING RETURNING HOME IN AM. REPORTS IRRITABILITY WITH BEING IN HOSPITAL. IV MG REPLACEMENT THIS EVENING. PT AMBULATORY WITH SBA USING FWW TO RESTROOM, GAIT IS STEADY. A&OX4, MAKES NEEDS KNOWN. FAIRING WELL WITH SMALL, BITE SIZED DIET, NO STRAW. REMAINS SR WITH BBB, RATE IN 80S ON TELEMETRY. NO HYPOXIC EVENTS ON CONTINUOUS PULSE OX WHILE ON ROOM AIR. SINGLE EPISODE OF R NARIS EPISTAXIS QUICKLY RESOLVES.
[2024-12-28 05:55] VITALS: BP 122/67
[2024-12-28 07:16] VITALS: BP 129/85
--- NOTE | 2024-12-28 07:22 | NUR ---
THIS RN WITNESS PT REFUSING MORNING LAB DRAWS AFTER ATTEMTPING PERSUASION. PT REPLIED TO PHLEBOTOMISTS "YOU CAN KISS MY MIDDLE FINGER". NURSING STAFF EDUCATED THAT ALL PT NEEDS TO SAY IS "NO" AND THAT IS FINE.
[2024-12-28 12:21] VITALS: BP 122/88
[2024-12-28] MEDS ORDERED: MAGNESIUM OXID500 MG PO (12:21)
[2024-12-28] MEDS ORDERED: MULTIVITAM PO (12:24)
[2024-12-28] MEDS ORDERED: VITAMIN B-1100 M2 PO (12:25)
[2024-12-28] MEDS ORDERED: POTA10T PO (12:26)
[2024-12-28] MEDS ORDERED: CEPH500 PO (12:26)
[2024-12-28] MEDS ORDERED: CefTRIAXone Sodium 1,000 MG in NS 100 ML IV SCH (13:00)
--- NOTE | 2024-12-28 14:19 | NUR ---
DISCHARGE PT AOX4, SEMI COOPERATIVE, ABLE TO MAKE NEEDS KNOWN. PT IS SBA IN ROOM, ON ROOM AIR, WAS ON TELE. PT DOES HAVE RUDE BAVIOR EPISODES AND IS RESISTANT WITH CARE AT TIMES. FAMILY BEDSIDE MOST OF SHIFT. TELE AND IV'S DC'D BY THIS RN WIHTOUT EVENTS. PT TRANSPORTED DOWN TO PT ENTRANCE BY SPAR FINISHER. BELONGINGS WENT WITH PT AND FAMILY.
== END 2024-12-28 14:10 | disposition home or self-care (01) | DRG 682 ==
LOC: ER 17:01 → MEDS 12-26 01:20 → ENPENDDIS 12-28 11:59 → MEDS 12-28 14:10
PROVIDERS: Internal Medicine; Student in an Organized Health Care Education/Training Program; ADMIT Internal Medicine
DX: N17.9 Acute kidney failure, unspecified (principal); E43 Unspecified severe protein-calorie malnutrition; N39.0 Urinary tract infection, site not specified; I13.0 Hypertensive heart and chronic kidney disease with heart failure and stage 1 through stage 4 chronic kidney disease, or unspecified chronic kidney disease; Z68.1 Body mass index [BMI] 19.9 or less, adult; K52.9 Noninfective gastroenteritis and colitis, unspecified; E87.6 Hypokalemia; D63.1 Anemia in chronic kidney disease; N18.9 Chronic kidney disease, unspecified; E83.39 Other disorders of phosphorus metabolism; Z66 Do not resuscitate; E78.5 Hyperlipidemia, unspecified; I50.9 Heart failure, unspecified; B96.20 Unspecified Escherichia coli [E. coli] as the cause of diseases classified elsewhere; C50.919 Malignant neoplasm of unspecified site of unspecified female breast; E83.42 Hypomagnesemia; D51.0 Vitamin B12 deficiency anemia due to intrinsic factor deficiency; Z79.899 Other long term (current) drug therapy; Z86.73 Personal history of transient ischemic attack (TIA), and cerebral infarction without residual deficits; E88.09 Other disorders of plasma-protein metabolism, not elsewhere classified; Z91.018 Allergy to other foods; Z91.0110 Allergy to milk products, unspecified; Z23 Encounter for immunization
CPT/HCPCS: 36415; 51702; 51798; 71275; 80053; 81001; 83735; 83880; 84100; 84484; 85025; 85379; 85610; 87077; 87086; 87186; 87637; 92610; 93005; 93010; 93306; 94762; 96361; 96365; 96375; 97161; 97165; 97530; 99285-25; A9270; J0696; J2405; J3475; J3480; J7030; J7060; Q9967

== ENCOUNTER 2025-01-06 09:56 | Inpatient (IN) | payer OTHER ==
[2025-01-06] VITALS (12 sets, daily range): BP systolic 102–154; BP diastolic 56–80
[~2025-01-06] VITALS: Ht 152.4 cm; Wt 50.3 kg
[~2025-01-06 09:56] MED LIST changes: +ALEN70 PO; +CEPH500 PO; +MAGNESIUM OXID500 MG PO; +MULTIVITAM PO; +POTA10T PO; +VITAMIN B-1100 M2 PO
[2025-01-06 10:20] LABS: BASOPHILS ABSOLUTE AUTO 0.02 K/mm3 (0.00-0.23); BASOPHILS PERCENT AUTO 0 % (0-2); EOSINOPHILS ABSOLUTE AUTO 0.00 K/mm3 (0.00-0.68); EOSINOPHILS PERCENT AUTO 0 % (0-6); Hematocrit 28.5 % (33.0-51.0); Hemoglobin 9.4 g/dL (11.5-16.0); IMMATURE GRAN ABSOLUTE AUTO 0.08 K/mm3 (0.00-0.10); IMMATURE GRAN PERCENT AUTO 1 % (0-1); LYMPHOCYTES ABSOLUTE AUTO 0.96 K/mm3 (0.84-5.20); LYMPHOCYTES PERCENT AUTO 10 % (21-46); MONOCYTES ABSOLUTE AUTO 0.49 K/mm3 (0.16-1.47); MONOCYTES PERCENT AUTO 5 % (4-13); Mean Corpuscular HGB Conc 33.0 g/dL (31.5-36.5); Mean Corpuscular Volume 89 fL (80-100); NEUTROPHILS ABSOLUTE AUTO 8.58 K/mm3 (1.96-9.15); NEUTROPHILS PERCENT AUTO 85 % (41-73); NRBC ABSOLUTE 0.00 K/mm3 (0.00-0.02); NRBC Auto 0.0 /100 WBC (0.0-0.2); Platelet Count 289 K/mm3 (150-400); RDW Coefficient Variation 15.0 % (11.7-14.2); RDW Standard Deviation 49.2 fL (35.1-46.3)
[2025-01-06] MEDS ORDERED: NS 1,000 ML IV SCH (10:30)
[2025-01-06 10:51] LABS: Alanine Aminotransfer (ALT/SGP 28.0 U/L (12-78); Albumin, Blood 2.0 g/dL (3.4-5.0); Albumin/Globulin Ratio 0.5 (0.8-1.8); Anion Gap 8.0 mmol/L (3-11); Aspartate Aminotrans (AST/SGOT 33.0 U/L (12-37); Bilirubin, Total 0.8 mg/dL (0.1-1.0); Blood Urea Nitrogen 21.0 mg/dL (8-24); CO2, Blood 27.0 mmol/L (21-32); Calcium, Blood 8.3 mg/dL (8.5-10.1); Chloride, Blood 111.0 mmol/L (98-108); Creatinine, Blood 0.78 mg/dL (0.40-1.00); Globulin, Blood 4.2 g/dL (2.2-4.0); Glucose, Blood 83.0 mg/dL (70-99); Potassium, Blood 4.3 mmol/L (3.5-5.5); Sodium, Blood 142.0 mmol/L (136-145); Total Protein, Blood 6.2 g/dL (6.4-8.2)
[2025-01-06 10:52] LABS: Magnesium, Blood 2.3 mg/dL (1.6-2.4); Phosphorus, Blood 2.0 mg/dL (2.5-4.9)
[2025-01-06 11:10] LABS: Influenza A, PCR NEGATIVE (NEGATIVE); Influenza B, PCR NEGATIVE (NEGATIVE); Resp Syncytial Virus, PCR NEGATIVE (NEGATIVE); SARS-Cov-2 (COVID-19) PCR, MMC NEGATIVE (NEGATIVE)
[2025-01-06] MEDS ORDERED: FLU VACC TS2025(65UP)/MF59C/PF 45 MCG/0.5 ML SYRINGE IM SCH (14:00)
[2025-01-06] MEDS ORDERED: FentaNYL Citrate 50 MCG/ML 2 ML Injection ONE (14:18)
[2025-01-06] MEDS ORDERED: CeFAZolin Sodium 2,000 MG in NS 100 ML IV SCH (14:20)
[2025-01-06] MEDS ORDERED: MetroNIDAZOLE 500MG/NS 100 ml 100 ML IV SCH (14:20)
[2025-01-06] MEDS ORDERED: Bupivacaine 0.25% Epi 1:200000 30 ML Vial ONE (14:23)
[2025-01-06] MEDS ORDERED: Ondansetron HCl 2 MG / ML 2ML Vial IV PRN ×2 (14:45→18:35)
[2025-01-06] MEDS ORDERED: FentaNYL Citrate 50 MCG/ML 2 ML Injection IV PRN (14:45)
[2025-01-06] MEDS ORDERED: HYDROmorphone HCl/Pf 1MG SYR IV PRN ×2 (14:45→18:35)
[2025-01-06] MEDS ORDERED: FentaNYL Citrate 50 MCG/ML 5 ML Injection ONE (15:24)
[2025-01-06] MEDS ORDERED: Sodium Phosphate 15 MM in Dextrose 5% 250 ML IV SCH (16:30)
[2025-01-06] MEDS ORDERED: Sugammadex Sodium 200 MG/2ML SDV (100 MG/ML) ONE (17:19)
[2025-01-06] MEDS ORDERED: Ondansetron HCl 2 MG / ML 2ML Vial ONE (17:23)
[2025-01-06] MEDS ORDERED: Dexamethasone Sod Phos 10 MG/ML 1ML VIAL ONE (17:23)
--- NOTE | 2025-01-06 18:54 | NUR ---
PT ARRIVED TO ROOM 229 FROM PACU. TRANSFERRED PT FROM [facility] TO BED. BED ALARM ON. CALL LIGHT IN REACH. PT VERY SLEEPY; SHOOK HEAD NO WHEN ASKED IF IN PAIN OR HAD NAUSEA THEN RETURNED TO SLEEP. MIDLINE DRESSING HAS MOD AMT SHADOWING ON IT. OSTOMY HAS BROWN LIQUID OUTPUT. HIMA DRAIN HAS SS DRAINAGE NOTED.
--- NOTE | 2025-01-06 19:39 | NUR ---
REPORT GIVEN TO ONCOMING RN.
[2025-01-06 20:16] LABS: Hematocrit 27.5 % (33.0-51.0); Hemoglobin 8.9 g/dL (11.5-16.0)
[2025-01-06] MEDS ORDERED: Ampicillin Sod/Sulbactam Sod 3 GM in NS 100 ML IV SCH (23:00)
[2025-01-07 03:01] VITALS: BP 94/72
[2025-01-07 03:13] VITALS: BP 103/59
--- NOTE | 2025-01-07 03:43 | NUR ---
SHIFT SUMMARY POD 1 S/P SIGMOID COLECTOMY. OSTOMY PRODUCING SOFT BROWN STOOL, EMPTIED 3X DURING NIGHT; APPLIANCE CDI. HIMA TO RIGHT ABD INTACT, DRAINING SS FLUID. LEAKING NOTED AROUND HIMA INSERTION SITE, DRESSING REINFORCED WITH EXU DRY AND TAPE. HR NSR 70-80'S BPM PER CLEARING HOUSE CLERK, PT DENIES CHEST PAIN/PRESSURE. SPO2 AT 96% ON 1NC WHILE SLEEPING. PAIN MANAGED PER EMAR, MEDICATED X 1 FOR PAIN. PT DROWSY POST PAIN MEDICATION ADMINISTRATION, ABLE TO MAKE NEEDS KNOWN AND AWAKENS EASILY. POOR PO INTAKE, ENCOURAGED FREQUENTLY. PT ONLY TAKING IN WATER AT THIS TIME, DENIES CL OPTIONS. DWYER TO GRAVITY DRAIN, YELLOW URINE NOTED IN BAG. AWAITING FIRST OOB AMBULATION. ABX INFUSED PER ORDERS. IV X 2 PATENT/SL. PT CURRENTLY RESTING IN BED WITH CALL LIGHT IN REACH, BED ALARM ON FOR SAFETY, AND RESP EVEN/UNLABORED. WILL GIVE REPORT TO ONCOMING RN.
[2025-01-07 04:55] LABS: BASOPHILS ABSOLUTE AUTO 0.03 K/mm3 (0.00-0.23); BASOPHILS PERCENT AUTO 0 % (0-2); EOSINOPHILS ABSOLUTE AUTO 0.00 K/mm3 (0.00-0.68); EOSINOPHILS PERCENT AUTO 0 % (0-6); Hematocrit 22.9 % (33.0-51.0); Hemoglobin 7.7 g/dL (11.5-16.0); IMMATURE GRAN ABSOLUTE AUTO 0.14 K/mm3 (0.00-0.10); IMMATURE GRAN PERCENT AUTO 1 % (0-1); LYMPHOCYTES ABSOLUTE AUTO 0.59 K/mm3 (0.84-5.20); LYMPHOCYTES PERCENT AUTO 4 % (21-46); MONOCYTES ABSOLUTE AUTO 0.23 K/mm3 (0.16-1.47); MONOCYTES PERCENT AUTO 2 % (4-13); Mean Corpuscular HGB Conc 33.6 g/dL (31.5-36.5); Mean Corpuscular Volume 88 fL (80-100); NEUTROPHILS ABSOLUTE AUTO 12.90 K/mm3 (1.96-9.15); NEUTROPHILS PERCENT AUTO 93 % (41-73); NRBC ABSOLUTE 0.00 K/mm3 (0.00-0.02); NRBC Auto 0.0 /100 WBC (0.0-0.2); Platelet Count 303 K/mm3 (150-400); RDW Coefficient Variation 15.3 % (11.7-14.2); RDW Standard Deviation 48.7 fL (35.1-46.3)
[2025-01-07 05:25] LABS: Alanine Aminotransfer (ALT/SGP 21.0 U/L (12-78); Albumin, Blood 1.6 g/dL (3.4-5.0); Albumin/Globulin Ratio 0.5 (0.8-1.8); Anion Gap 8.0 mmol/L (3-11); Aspartate Aminotrans (AST/SGOT 27.0 U/L (12-37); Bilirubin, Total 0.6 mg/dL (0.1-1.0); Blood Urea Nitrogen 18.0 mg/dL (8-24); CO2, Blood 27.0 mmol/L (21-32); Calcium, Blood 6.8 mg/dL (8.5-10.1); Chloride, Blood 114.0 mmol/L (98-108); Creatinine, Blood 0.75 mg/dL (0.40-1.00); Globulin, Blood 3.1 g/dL (2.2-4.0); Glucose, Blood 161.0 mg/dL (70-99); Phosphorus, Blood 4.3 mg/dL (2.5-4.9); Potassium, Blood 3.8 mmol/L (3.5-5.5); Sodium, Blood 145.0 mmol/L (136-145); Total Protein, Blood 4.7 g/dL (6.4-8.2)
[2025-01-07] MEDS ORDERED: NS 250 ML IV PRN (05:25)
[2025-01-07] MEDS ORDERED: FentaNYL Citrate 50 MCG/ML 2 ML Injection IV PRN (07:20)
[2025-01-07] MEDS ORDERED: D5W-1/2NS 1,000 ML IV SCH (07:25)
[2025-01-07 07:39] VITALS: BP 107/58
[2025-01-07] MEDS ORDERED: Enoxaparin 40 MG/0.4 ML SYR SC SCH (09:00)
[2025-01-07 12:15] LABS: Hematocrit 23.4 % (33.0-51.0); Hemoglobin 7.9 g/dL (11.5-16.0)
[2025-01-07] MEDS ORDERED: Oxybutynin Chlo15 MG PO (12:46)
[2025-01-07 15:18] VITALS: BP 99/54
--- NOTE | 2025-01-07 17:53 | NUR ---
SUMMARY NO ACUTE CHANGES T/O SHIFT. PT SIPPING CLEARS. OSTOMY HAVING BROWN UNFORMED OUTPUT. HIMA PUTTING OUT SS DRAINAGE. PT CATHETER DC'D THIS AFTERNOON. PUREWICK PLACED. PT UNABLE TO GET OOB TODAY D/T WEAKNESS. UNABLE TO LIFT LEGS OFF BED. REPOSITIONED T/O DAY AND PROTECTIVE MEPILEX PLACED TO COCCYX THIS AFTERNOON. PT'S EXTREMITIES COOL TO TOUCH, DIFFICULT TO GET GOOD READING ON OXIMETRY WITH VARIETY OF PROBES. PT DENIES FEELING COLD. CALL LIGHT IN REACH.
[2025-01-07 19:22] VITALS: BP 106/62
[2025-01-07 22:48] VITALS: BP 106/58
--- NOTE | 2025-01-08 00:31 | NUR ---
PROVIDER NOTIFIED 3+ PITTING EDEMA TO BLE WITH DUSKY/PURPLE TOES AND FINGER TIPS NOTED. PEDAL PULSES DOPPLER ONLY. SX NOT RELIEVED FROM WARM THERAPY. PT UNSURE BUT BELIEVES SX MAY BE "NORMAL FOR ME." DENIES CALF PAIN OR N/T. HOSPITALIST NOTIFIED. NO ORDERS AT THIS TIME, PLAN FOR POSSIBLE U/S DURING DAY SHIFT.
--- NOTE | 2025-01-08 04:11 | NUR ---
SHIFT SUMMARY POD 2 SIGMOID COLECTOMY W/ OSTOMY. OSTOMY PRODUCING BROWN LIQUID OUTPUT. NEW APPLIANCE APPLIED AND HIMA/MIDLINE DRESSING CHANGED THIS SHIFT DUE TO OSTOMY APPLIANCE LEAKING. HIMA DRAIN PATENT W/SS DRAINAGE. MIDLINE INCISION C/D/I. PT DENIES PAIN. PT C/O NAUSEA, MEDICATED PER EMAR WITH PT REPORTING RELIEF OF SYMPTOMS. PUREWICK IN PLACE AND DRAINING TO LOW SUCTION. DECREASED PERFUSION TO EXTREMITIES W/ +3 EDEMA TO BLE, UNABLE TO PALPATE PEDAL PULSES, LOCATED WITH DOPPLER. BILATERAL HEELS RED AND BLANCHABLE. BLE ELEVATED AND BILATERAL HEELS FLOATED. SR @89 W/BBB PER TELETECH. CONT PULSE OX IN PLACE SPO2 94% ON 2L O2 VIA NC. PT RESTING IN BED, RESPIRATION EVEN AND UNLABORED. CALL LIGHT WITHIN REACH.
[2025-01-08 04:35] VITALS: BP 113/65
--- NOTE | 2025-01-08 07:19 | NUR ---
PROVIDER UPDATED DR. ALBERTO GARCIA, NOTIFIED OF PATIENT'S CURRENT STATUS- POOR PO INTAKE,POSSIBLE SWALLOWING COMPLICATION, DECREASED URINARY OUTPUT, 3+ EDEMA TO BLE, PROLONGED QT OF 5.0, DUSKY/RED FINGERS AND TOES. NO NEW ORDERS AT THIS TIME. DAY RN AWARE.
[2025-01-08 07:22] VITALS: BP 119/78
[2025-01-08 07:44] LABS: BASOPHILS ABSOLUTE AUTO 0.02 K/mm3 (0.00-0.23); BASOPHILS PERCENT AUTO 0 % (0-2); EOSINOPHILS ABSOLUTE AUTO 0.02 K/mm3 (0.00-0.68); EOSINOPHILS PERCENT AUTO 0 % (0-6); Hematocrit 23.4 % (33.0-51.0); Hemoglobin 8.0 g/dL (11.5-16.0); IMMATURE GRAN ABSOLUTE AUTO 0.10 K/mm3 (0.00-0.10); IMMATURE GRAN PERCENT AUTO 1 % (0-1); LYMPHOCYTES ABSOLUTE AUTO 1.13 K/mm3 (0.84-5.20); LYMPHOCYTES PERCENT AUTO 9 % (21-46); MONOCYTES ABSOLUTE AUTO 0.64 K/mm3 (0.16-1.47); MONOCYTES PERCENT AUTO 5 % (4-13); Mean Corpuscular HGB Conc 34.2 g/dL (31.5-36.5); Mean Corpuscular Volume 86 fL (80-100); NEUTROPHILS ABSOLUTE AUTO 11.24 K/mm3 (1.96-9.15); NEUTROPHILS PERCENT AUTO 85 % (41-73); NRBC ABSOLUTE 0.00 K/mm3 (0.00-0.02); NRBC Auto 0.0 /100 WBC (0.0-0.2); Platelet Count 373 K/mm3 (150-400); RDW Coefficient Variation 15.3 % (11.7-14.2); RDW Standard Deviation 48.1 fL (35.1-46.3)
[2025-01-08 07:50] LABS: Alanine Aminotransfer (ALT/SGP 21.0 U/L (12-78); Albumin, Blood 1.7 g/dL (3.4-5.0); Albumin/Globulin Ratio 0.5 (0.8-1.8); Anion Gap 8.0 mmol/L (3-11); Aspartate Aminotrans (AST/SGOT 30.0 U/L (12-37); Bilirubin, Total 0.4 mg/dL (0.1-1.0); Blood Urea Nitrogen 16.0 mg/dL (8-24); CO2, Blood 27.0 mmol/L (21-32); Calcium, Blood 6.7 mg/dL (8.5-10.1); Chloride, Blood 109.0 mmol/L (98-108); Creatinine, Blood 0.82 mg/dL (0.40-1.00); Globulin, Blood 3.5 g/dL (2.2-4.0); Glucose, Blood 113.0 mg/dL (70-99); Potassium, Blood 2.8 mmol/L (3.5-5.5); Sodium, Blood 141.0 mmol/L (136-145); Total Protein, Blood 5.2 g/dL (6.4-8.2)
[2025-01-08] MEDS ORDERED: Metoclopramide HCl 5MG / ML 2ML Vial IV PRN (08:00)
[2025-01-08] MEDS ORDERED: Enoxaparin 40 MG/0.4 ML SYR SC SCH (09:00)
[2025-01-08] MEDS ORDERED: Potassium Chl 20MEQ/Water100ML 100 ML IV SCH (10:10)
[2025-01-08 14:09] VITALS: BP 114/62
[2025-01-08 16:38] LABS: Anion Gap 7.0 mmol/L (3-11); Blood Urea Nitrogen 16.0 mg/dL (8-24); CO2, Blood 26.0 mmol/L (21-32); Calcium, Blood 6.8 mg/dL (8.5-10.1); Chloride, Blood 108.0 mmol/L (98-108); Creatinine, Blood 0.92 mg/dL (0.40-1.00); Glucose, Blood 126.0 mg/dL (70-99); Potassium, Blood 2.9 mmol/L (3.5-5.5); Sodium, Blood 138.0 mmol/L (136-145)
--- NOTE | 2025-01-08 18:26 | NUR ---
SHIFT SUMMARY POD2 SIGMOID COLECTOMY WITH NEW OSTOMY, A/OX4, VSS, TOLERATING PO THOUGH HER INTAKE HAS BEEN MINIMAL, NO URINE OUTPUT, SHE HAD A BLADDER SCAN OF 377 AT 1730, DISCUSSED RISKS OF TOO MUCH URINE IN HER BLADDER AND POSSIBLE NEXT STEPS. SHE HAD OUTPUT FROM HER OSTOMY TODAY AND SOME FLATUS. SHE STATES FEELING TIRED TODAY BUT SHE WAS ABLE TO WORK WITH PT AND OT THIS AM. WILL DISCUSS BLADDER SCAN RESULTS WITH NOC RN. NO OTHER EVENTS THIS SHIFT, CALL LIGHT IN REACH.
--- NOTE | 2025-01-08 19:14 | NUR ---
URINE UPDATE SPOKE WITH POWER REGULATOR HOSPITALIST REGARDING ON URINE OUTPUT TODAY, DISCUSSED THE TWO BLADDER SCANS OF 250 AND 377 DONE BY YARIEL CANADA AND MAURICIO RN RESPECTIVELY. PER MD WILL WAIT 2 HOURS AND SEE IF SHE VOIDS AND IF NOT, POSSIBLE STRAIGHT CATH AT THAT TIME. WILL CONTINUE CURRENT FLUIDS UNDER CURRENT RATE.
[2025-01-08 20:39] VITALS: BP 129/56
--- NOTE | 2025-01-08 22:40 | NUR ---
DRESSING CHANGE IHMA LEAKING SS FLUID AROUND INSERTION SITE, DRESSING CHANGE COMPLETE AND REDNESS NOTED AROUND SUTURES. MIDLINE DRESSING REPLACED DUE TO STOOL FROM OSTOMY LEAKING, MIDLINE KATERINE IN PLACE. OSTOMY APPLIANCE ALSO REPLACED. PT TOLERATED WELL, DENIED NEED FOR PAIN MEDICATION. STOMA BEEFY RED IN COLOR.
[2025-01-09 03:18] VITALS: BP 110/67
--- NOTE | 2025-01-09 03:50 | NUR ---
N/V UPDATE AT APPROX 0305 RN CALLED TO ROOM WHERE CHAIR POST MACHINE OPERATOR WAS HOLDING EMESIS BAG WHILE PT VOMITED 100MLS OF FLUID WITH SOLIDS. PT REPORTS IT WAS FROM "THAT DAMN DINNER. THE FOOD IS TERRIBLE." PT DECLINED ANTIEMETIC. COOL WASH CLOTH AND WATER PROVIDED. PT DENIES SOB, CP, N/T. TEMP OF 99.5 NOTED WITH VITALS ASSESSMENT. PT REFUSED TO ALLOW RN TO REMOVE BLANKETS, HEAT TURNED DOWN IN ROOM. AT THIS TIME, PT DENIES NAUSEA. BLE ELEVATED ON PILLOW. HIMA EMPTIED BY CHAIR POST MACHINE OPERATOR, DRESSING CDI. HAS CALL LIGHT IN REACH. WILL CONT PLAN OF CARE AND MONITOR TEMPERATURE.
[2025-01-09 06:16] VITALS: BP 97/61
--- NOTE | 2025-01-09 06:30 | NUR ---
SHIFT SUMMARY POD 3 S/P SIGMOID COLECTOMY WITH OSTOMY. OSTOMY APPLIANCE CHANGED DUE TO LEAKING, NOW CDI. LIQUID, MUCUS APPEARING STOOL NOTED IN BAG. STOMA BEEFY RED, SKIN INTACT AROUND STOMA AND UNDER APPLIANCE. MIDLINE DRESSING CHANGED, KATERINE INTACT. HIMA DRAINING SS FLUID, BULB COMPRESSED BUT CONT TO LEAK SS FLUID AROUND INSERTION SITE. REDNESS NOTED AROUND SUTURES AT INSERTION OF HIMA, DRESSING ALSO CHANGE. STRAIGHT CATH FOR RETENTION, AWAITING VOID. 1 EPISODE OF N/V. STILL HAS REDNESS/PURPLE TOES, REDNESS IN FINGER TIPS HAS DECREASED. HEELS FLOATED FOR COMFORT. IVF AND ABX INFUSING PER ORDERS. REPORTS PAIN AT TOLERABLE LEVEL, DENIED PAIN MEDS. PT CURRENTLY RESTING IN BED WITH CALL LIGHT IN REACH. WILL GIVE REPORT TO ONCOMING KEVYN
[2025-01-09] MEDS ORDERED: Potassium Chl 20MEQ/Water100ML 100 ML IV SCH (07:00)
[2025-01-09 07:31] LABS: BASOPHILS ABSOLUTE AUTO 0.02 K/mm3 (0.00-0.23); BASOPHILS PERCENT AUTO 0 % (0-2); EOSINOPHILS ABSOLUTE AUTO 0.02 K/mm3 (0.00-0.68); EOSINOPHILS PERCENT AUTO 0 % (0-6); Hematocrit 22.9 % (33.0-51.0); Hemoglobin 7.8 g/dL (11.5-16.0); IMMATURE GRAN ABSOLUTE AUTO 0.09 K/mm3 (0.00-0.10); IMMATURE GRAN PERCENT AUTO 1 % (0-1); LYMPHOCYTES ABSOLUTE AUTO 1.06 K/mm3 (0.84-5.20); LYMPHOCYTES PERCENT AUTO 8 % (21-46); MONOCYTES ABSOLUTE AUTO 0.61 K/mm3 (0.16-1.47); MONOCYTES PERCENT AUTO 5 % (4-13); Mean Corpuscular HGB Conc 34.1 g/dL (31.5-36.5); Mean Corpuscular Volume 88 fL (80-100); NEUTROPHILS ABSOLUTE AUTO 11.86 K/mm3 (1.96-9.15); NEUTROPHILS PERCENT AUTO 87 % (41-73); NRBC ABSOLUTE 0.00 K/mm3 (0.00-0.02); NRBC Auto 0.0 /100 WBC (0.0-0.2); Platelet Count 306 K/mm3 (150-400); RDW Coefficient Variation 15.4 % (11.7-14.2); RDW Standard Deviation 49.4 fL (35.1-46.3)
[2025-01-09 07:38] VITALS: BP 109/52
[2025-01-09 13:57] LABS: Anion Gap 9.0 mmol/L (3-11); Blood Urea Nitrogen 16.0 mg/dL (8-24); CO2, Blood 25.0 mmol/L (21-32); Calcium, Blood 6.9 mg/dL (8.5-10.1); Chloride, Blood 109.0 mmol/L (98-108); Creatinine, Blood 1.27 mg/dL (0.40-1.00); Glucose, Blood 101.0 mg/dL (70-99); Magnesium, Blood 1.7 mg/dL (1.6-2.4); Phosphorus, Blood 2.1 mg/dL (2.5-4.9); Potassium, Blood 2.7 mmol/L (3.5-5.5); Sodium, Blood 140.0 mmol/L (136-145)
[2025-01-09 14:32] LABS: Creatinine, Body Fluid 1.46 mg/dL
[2025-01-09 15:29] VITALS: BP 105/69
--- NOTE | 2025-01-09 19:44 | NUR ---
SHIFT SUMMARY POD5 SIG COLECT WITH NEW OSTOMY, A/OX4, VSS, TOLERATING PO THOUGH SHE HAS PRIMARILY ONLY TAKEN IN WATER, SHE HAD A SMALL AMOUNT OF HER CHOCOLATE MILK TO TAKE HER CRUMBLED POTASSIUM WITH TODAY AND A SMALL PEACHES FRUIT CUP. NO VOIDS TODAY, BS OF 162 WHICH WAS DISCUSSED WITH MD WHO STATES TO MONITOR FOR ANY CHANGES AND STRAIGHT CATH IF SHE IS > 250. SLIGHT INCREASE IN THE EDEMA IN HER EXTREMITIES BUT NO NOTED SOB OR PULMONARY EDEMA. WORKED WITH THERAPY TODAY. SHE CONTINUES TO BE UNMOTIVIATED TO EAT OTHER THAN THE FRUIT CUP SHE WAS GIVEN. OSTOMY CHANGED TODAY WHEN IT STARTED LEAKING UNDER THE APPLIANCE. NO OTHER EVENTS THIS SHIFT, CALL LIGHT IN REACH.
[2025-01-09 19:57] VITALS: BP 124/73
--- NOTE | 2025-01-09 21:15 | NUR ---
PROVIDER NOTIFIED DR. BHANDARI NOTIFIED OF CURRENT PT STATUS, INCLUDING N/V, DARK GREEN LIQUID IN OSTOMY, POOR PO INTAKE, DECREASED URINARY OUTPUT, ABNORMAL LAB VALUES, REDNESS IN TOES, LEAKING AND INCREASED HIMA OUTPUT, AND TEMP O 99.6. NEW ORDERS FOR IV FLUIDS AND LABS OBTAINED. PLAN TO DISCUSS IV NUTRITION OPTIONS WITH DAYSHIFT AND CURRENT HOSPITALIST R/T CMP VALUES. WILL NOTIFY PATIENT AND IMPLEMENT ORDERS DIRECTED.
[2025-01-09] MEDS ORDERED: D5W-1/2NS KCl 20mEq 1,000 ML IV SCH (21:55)
[2025-01-09 22:46] LABS: Anion Gap 9.0 mmol/L (3-11); Blood Urea Nitrogen 20.0 mg/dL (8-24); CO2, Blood 24.0 mmol/L (21-32); Calcium, Blood 6.8 mg/dL (8.5-10.1); Chloride, Blood 109.0 mmol/L (98-108); Creatinine, Blood 1.74 mg/dL (0.40-1.00); Glucose, Blood 132.0 mg/dL (70-99); Potassium, Blood 3.0 mmol/L (3.5-5.5); Sodium, Blood 139.0 mmol/L (136-145)
--- NOTE | 2025-01-10 02:00 | NUR ---
HOSPITALIST NOTIFIED PER DR. BHANDARI, HOSPITALIST CONSULTED FOR MEDICAL MANAGEMENT. NO NEW ORDERS AT THIS TIME, PLAN FOR DAY PROVIDERS TO MANAGE.
--- NOTE | 2025-01-10 03:30 | NUR ---
NEW ORDERS HOSPITALIST ROUNDING, UPDATE ON PATIENT STATUS PROVIDED. NEW ORDERS FOR IV MEDICATIONS AND LABS OBTAINED, SEE ORDERS. WILL IMPLEMENT INSTRUCTED
[2025-01-10 05:04] LABS: BASOPHILS ABSOLUTE AUTO 0.02 K/mm3 (0.00-0.23); BASOPHILS PERCENT AUTO 0 % (0-2); EOSINOPHILS ABSOLUTE AUTO 0.07 K/mm3 (0.00-0.68); EOSINOPHILS PERCENT AUTO 1 % (0-6); Hematocrit 21.2 % (33.0-51.0); Hemoglobin 7.1 g/dL (11.5-16.0); IMMATURE GRAN ABSOLUTE AUTO 0.10 K/mm3 (0.00-0.10); IMMATURE GRAN PERCENT AUTO 1 % (0-1); LYMPHOCYTES ABSOLUTE AUTO 0.87 K/mm3 (0.84-5.20); LYMPHOCYTES PERCENT AUTO 7 % (21-46); MONOCYTES ABSOLUTE AUTO 0.70 K/mm3 (0.16-1.47); MONOCYTES PERCENT AUTO 5 % (4-13); Mean Corpuscular HGB Conc 33.5 g/dL (31.5-36.5); Mean Corpuscular Volume 87 fL (80-100); NEUTROPHILS ABSOLUTE AUTO 11.22 K/mm3 (1.96-9.15); NEUTROPHILS PERCENT AUTO 86 % (41-73); NRBC ABSOLUTE 0.00 K/mm3 (0.00-0.02); NRBC Auto 0.0 /100 WBC (0.0-0.2); Platelet Count 254 K/mm3 (150-400); RDW Coefficient Variation 15.0 % (11.7-14.2); RDW Standard Deviation 48.4 fL (35.1-46.3)
[2025-01-10 05:31] LABS: Albumin, Blood 1.3 g/dL (3.4-5.0); Anion Gap 8 mmol/L (3-11); Blood Urea Nitrogen 20 mg/dL (8-24); CO2, Blood 25 mmol/L (21-32); Calcium, Blood 6.8 mg/dL (8.5-10.1); Chloride, Blood 109 mmol/L (98-108); Creatinine, Blood 1.92 mg/dL (0.40-1.00); Glucose, Blood 144 mg/dL (70-99); Phosphorus, Blood 2.1 mg/dL (2.5-4.9); Potassium, Blood 3.2 mmol/L (3.5-5.5); Sodium, Blood 139 mmol/L (136-145)
[2025-01-10 05:37] LABS: Magnesium, Blood 1.6 mg/dL (1.6-2.4)
--- NOTE | 2025-01-10 05:50 | NUR ---
SHIFT SUMMARY POD 5 SIGMOID COLECTOMY WITH OSTOMY AND HIMA DRAIN. OSTOMY APPLIANCE CDI WITHOUT ANY LEAKING TONIGHT; DARK GREEN THIN LIQUID NOTED IN OSTOMY. HIMA DRAIN IN PLACE TO RIGHT ABD, BULB COMPRESSED AND DRAINING SEROUS FLUID. HIMA FLUID PRODUCTION DECREASED COMPARED TO DAY AND PREVIOUS NIGHT. NO LEAKING AROUND INSERTION SITE AT THIS TIME, DRESSING CDI. CONTINUES TO HAVE POOR PO INTAKE, SIPS OF WATER ONLY. NOT TOLERATING PO, WITH N/V AFTER ATTEMPTING TO CONSUME SMALL AMOUNT OF PEACHES. IVF INFUSING PER ORDERS. PT STILL UNABLE TO VOID, MIDNIGHT BLADDER SCAN OF 209ML. PROVIDERS AWARE OF ONGOING HYDRATION/VOIDING STATUS. WILL REPEAT SCAN THIS MORNING. 3+ PITTING EDEMA TO BLE, ELEVATED ABOVE HEART ON TWO PILLOWS AND WRAPPED IN WARM BLANKET PRN. HEEL PROTECTORS APPLIED FOR COMFORT AND PREVENTION. 1-2 ASSIST WITH TURNING Q2 OR PT ALLOWED. TOES CONT TO BE DISCOLORED, PEDAL PULSES BY DOPPLER ONLY- PROVIDERS AWARE. CONTINUE WORKING WITH THERAPY. PLAN FOR POSSIBLE IV NUTRITION, PER HOSPITALIST AND SURGEON. PT DECLINED OOB. INCREASED WEAKNESS NOTED. PT IS A/OX4 WITH VSS. IS CURRENTLY RESTING IN BED WITH RESP EVEN AND CALL LIGHT IN BED. WILL GIVE REPORT TO ONGOING RN.
[2025-01-10 06:46] VITALS: BP 148/80
[2025-01-10] MEDS ORDERED: Potassium Phosphate Dibasic 15 MM in Dextrose 5% 250 ML IV STA (07:42)
[2025-01-10] MEDS ORDERED: Calcium Gluconate 10% 1,000 MG in NS 50 ML IV ONE (08:00)
[2025-01-10] MEDS ORDERED: Albumin (Human) 25gm/100ml 100 ML IV ONE (08:00)
[2025-01-10 08:49] VITALS: BP 128/66
[2025-01-10] MEDS ORDERED: Enoxaparin 30 MG/0.3 ML SYR SC SCH (09:00)
[2025-01-10] MEDS ORDERED: TPN Consult Notification XX ONE (10:40)
[2025-01-10 14:50] VITALS: BP 155/72
[2025-01-10] MEDS ORDERED: Multivitamins 10 ML,ZINC SULF/CUSO4 P-HYD/MN/CR/SE 1 ML in Aa 4.25%/Calcium/Lytes/D5w 1... IV SCH (15:45)
--- NOTE | 2025-01-10 16:42 | NUR ---
SHIFT SUMMARY POD 5 SIGMOID COLLECTOMY. WITH OSTOMY, AND HIMA IN PLACE. MIDLINE WITH KATERINE AND OSTOMY WITH GEEN LIQ OUTPUT. HIMA WITH LARGE AMOUNT OF OUTPUT S/S FLUID. ALL APPLIANCES AND DRESSINGS CHANGED. BED BATH DONE. REDDNESS TO COCCXY NOTED, BILAT LOWER EXT WITH PITTING EDEMA AND REDDNESS TO HEELS. ALL FLOATED ON PILLOWS AND HEEL FOAM PLACED. PURPLE, BLUISH COLOR TO BILAT TOES AND FINGERS NOTED, SKIN IS BLANCHABLE, COOL TO TOUCH. PEDAL PULSES ARE NOT PALPABLE DUE TO EDEMA. RADIAL PULSES PALPABLE AND CAP REFIL WNL. VSS. PATIENT IS NOT ABLE TO TOLERATE PO INTAKE, REPORTS NAUSEA. MEDICATED PER EMAR. SPEECH EVAL AND SWALLOW EVAL ORDERED. PATIENT TO RECIEVE PPN NUTRITION THIS EVENING. DWYER CATH PLACED FOR STRICT I&O. PATIENT WORKED WITH OT THIS AM, 1 ASSIST UP TO CHAIR. ABLE TO MAKE NEEDS KNOWN. CALL LIGHT IN REACH.
[2025-01-10 16:56] LABS: Anion Gap 10.0 mmol/L (3-11); Blood Urea Nitrogen 22.0 mg/dL (8-24); CO2, Blood 23.0 mmol/L (21-32); Calcium, Blood 7.3 mg/dL (8.5-10.1); Chloride, Blood 106.0 mmol/L (98-108); Creatinine, Blood 2.14 mg/dL (0.40-1.00); Glucose, Blood 120.0 mg/dL (70-99); Magnesium, Blood 1.5 mg/dL (1.6-2.4); Phosphorus, Blood 3.7 mg/dL (2.5-4.9); Potassium, Blood 3.0 mmol/L (3.5-5.5); Sodium, Blood 136.0 mmol/L (136-145)
[2025-01-10] MEDS ORDERED: Parenteral Electolytes 40 ML,Potassium Phosphate Dibasic 30 MM,Multivitamins 10 ML,ZINC... IV SCH ×2 (17:00)
--- NOTE | 2025-01-10 18:00 | NUR ---
LIPIDS UPDATE LIPIDS SPIKED TO ADMINISTER THIS RN REALIZED NOT DUE UNTIL 0900 IN AM. CALL TO HOSPITALIST TO ONEMI DOSE TONIGHT. PER DR. VINEET FRANKLIN ONE TIME UNSCHEDULED DOSE TONIGHT AND CONTIUNE SCHEDULED DOSE IN AM. CALL TO PHARMACY TO CONFIRM. DOSE WILL BE ISSUED FOR TOMORROW AM.
[2025-01-10 20:15] VITALS: BP 121/66
[2025-01-10 21:50] LABS: Creatinine, Urine Random 86.2 mg/dL (27.00-270.00); Sodium, Urine, Random 31.0 mmol/L (20-110)
[2025-01-11] MEDS ORDERED: NS 1,000 ML IV SCH ×2 (04:20→07:35)
[2025-01-11] MEDS ORDERED: Ampicillin Sod/Sulbactam Sod 3 GM in NS 100 ML IV SCH (04:46)
[2025-01-11 05:06] VITALS: BP 139/72
--- NOTE | 2025-01-11 05:26 | NUR ---
SHIFT SUMMARY NO ACUTE EVENTS OVERNIGHT. AUTOCUTTER NOTIFIED PROVIDER FOR ORDERS REGARDING FLUIDS AND ANTIBIOTICS. PT WITH INTERMITTENT REFUSAL OF REPOSITIONING BUT DOES APPRECIATE WHEN REPOSITIONED. PT EDEMA CONTINUES IN BLE AND R HAND; EXTREMITIES ELEVATED.
[2025-01-11 06:07] LABS: Magnesium, Blood 1.6 mg/dL (1.6-2.4)
[2025-01-11 06:08] LABS: Alanine Aminotransfer (ALT/SGP 19 U/L (12-78); Albumin, Blood 1.7 g/dL (3.4-5.0); Albumin/Globulin Ratio 0.6 (0.8-1.8); Anion Gap 9 mmol/L (3-11); Aspartate Aminotrans (AST/SGOT 30 U/L (12-37); Bilirubin, Total 0.4 mg/dL (0.1-1.0); Blood Urea Nitrogen 28 mg/dL (8-24); CO2, Blood 24 mmol/L (21-32); Calcium, Blood 7.3 mg/dL (8.5-10.1); Chloride, Blood 105 mmol/L (98-108); Creatinine, Blood 2.18 mg/dL (0.40-1.00); Globulin, Blood 2.8 g/dL (2.2-4.0); Glucose, Blood 106 mg/dL (70-99); Phosphorus, Blood 4.2 mg/dL (2.5-4.9); Potassium, Blood 2.8 mmol/L (3.5-5.5); Sodium, Blood 135 mmol/L (136-145); Total Protein, Blood 4.5 g/dL (6.4-8.2); Triglycerides 53 mg/dL (30-160)
--- NOTE | 2025-01-11 06:40 | NUR ---
NAUSEA 0625 RN AND FILTRATION PLANT MECHANIC TO ROOM. PT WITH EMESIS AND BED CHANGE/GOWN CHANGE. PT REPORTS FEELING BETTER AFTER EMESIS.
[2025-01-11] MEDS ORDERED: Potassium Chloride 60 MEQ IV ONE (06:50)
[2025-01-11 07:08] VITALS: BP 126/55
[2025-01-11] MEDS ORDERED: Potassium Chl 20MEQ/Water100ML 100 ML IV SCH ×2 (07:30)
[2025-01-11] MEDS ORDERED: Fat Emulsion 20 % IV 250 ML IV SCH (09:00)
[2025-01-11 10:46] LABS: Anion Gap 10.0 mmol/L (3-11); Blood Urea Nitrogen 28.0 mg/dL (8-24); CO2, Blood 24.0 mmol/L (21-32); Calcium, Blood 7.2 mg/dL (8.5-10.1); Chloride, Blood 106.0 mmol/L (98-108); Creatinine, Blood 2.15 mg/dL (0.40-1.00); Glucose, Blood 98.0 mg/dL (70-99); Potassium, Blood 2.8 mmol/L (3.5-5.5); Sodium, Blood 137.0 mmol/L (136-145)
--- NOTE | 2025-01-11 14:19 | NUR ---
PT WANTED "MILK PUDDING" ADVISED WE HAVE CHOCOLATE AND VANILLA, WHICH PT DECLINED.
[2025-01-11 14:24] VITALS: BP 111/61
[2025-01-11 14:55] LABS: Anion Gap 10.0 mmol/L (3-11); Blood Urea Nitrogen 24.0 mg/dL (8-24); CO2, Blood 23.0 mmol/L (21-32); Calcium, Blood 6.9 mg/dL (8.5-10.1); Chloride, Blood 108.0 mmol/L (98-108); Creatinine, Blood 2.07 mg/dL (0.40-1.00); Glucose, Blood 88.0 mg/dL (70-99); Potassium, Blood 3.1 mmol/L (3.5-5.5); Sodium, Blood 138.0 mmol/L (136-145)
[2025-01-11 15:55] LABS: Magnesium, Blood 1.6 mg/dL (1.6-2.4); Phosphorus, Blood 3.7 mg/dL (2.5-4.9)
--- NOTE | 2025-01-11 17:21 | NUR ---
SUMMARY PT HAS FELT UNWELL T/O SHIFT. HAS DECLINED TRAYS AND OFFER OF CHOCOLATE OR VANILLA PUDDING, STATING WANTS "MILK PUDDING". ASKED IF ANYTHING SOUNDED GOOD AND PT STATED NO. OSTOMY PUTTING OUT SMALL AMOUNT BROWN LIQUID. HIMA PUTTING OUT LARGE AMOUNT SEROUS LIQUID. PT'S K LOW T/O SHIFT. IV K ADMINISTERED AND INFUSING AT THIS TIME PER ORDERS. REPOSITIONED DURING SHIFT. CALL LIGHT IN REACH.
--- NOTE | 2025-01-11 17:31 | NUR ---
THERAPY IN TO SEE PT.
[2025-01-11 19:24] VITALS: BP 116/62
[2025-01-12] VITALS (8 sets, daily range): BP systolic 128–160; BP diastolic 56–87
[2025-01-12 00:10] LABS: Anion Gap 9.0 mmol/L (3-11); Blood Urea Nitrogen 23.0 mg/dL (8-24); CO2, Blood 21.0 mmol/L (21-32); Calcium, Blood 6.7 mg/dL (8.5-10.1); Chloride, Blood 113.0 mmol/L (98-108); Creatinine, Blood 1.94 mg/dL (0.40-1.00); Glucose, Blood 75.0 mg/dL (70-99); Potassium, Blood 3.2 mmol/L (3.5-5.5); Sodium, Blood 140.0 mmol/L (136-145)
--- NOTE | 2025-01-12 04:45 | NUR ---
SHIFT SUMMARY NO ACUTE EVENTS OVERNIGHT. PT WITH 2X EPISODES OF LEAKING OSTOMY BAG/APPLIANCE WITH COMPLETE CHANGES. PT POTASSIUM REPLACED AND COMPLETED AT APPROXIMATELY 2200 AND LABS REDRAWN. PT NS AND CLINIMIX CONTINUE TO INFUSE. PT EDEMA TO BLE REMAINS BUT IS SLIGHTLY BETTER THAN PREVIOUS NOC SHIFT. PT RIGHT HAND EDEMA REMAINS BUT IS ALSO LESSENED SINCE PREVIOUS NOC SHIFT. PT DID EAT SOME CHOCOLATE CAKE FOR DINNER LAST NIGHT AND IS ANTICIPATING FOOD BEING BROUGHT FROM A FRIEND TODAY FOR LUNCH.
[2025-01-12] MEDS ORDERED: Ampicillin Sod/Sulbactam Sod 3 GM in NS 100 ML IV SCH (06:00)
[2025-01-12 06:08] LABS: BASOPHILS ABSOLUTE AUTO 0.03 K/mm3 (0.00-0.23); BASOPHILS PERCENT AUTO 0 % (0-2); EOSINOPHILS ABSOLUTE AUTO 0.08 K/mm3 (0.00-0.68); EOSINOPHILS PERCENT AUTO 1 % (0-6); Hematocrit 21.2 % (33.0-51.0); Hemoglobin 7.0 g/dL (11.5-16.0); IMMATURE GRAN ABSOLUTE AUTO 0.10 K/mm3 (0.00-0.10); IMMATURE GRAN PERCENT AUTO 1 % (0-1); LYMPHOCYTES ABSOLUTE AUTO 0.88 K/mm3 (0.84-5.20); LYMPHOCYTES PERCENT AUTO 8 % (21-46); MONOCYTES ABSOLUTE AUTO 0.65 K/mm3 (0.16-1.47); MONOCYTES PERCENT AUTO 6 % (4-13); Mean Corpuscular HGB Conc 33.0 g/dL (31.5-36.5); Mean Corpuscular Volume 88 fL (80-100); NEUTROPHILS ABSOLUTE AUTO 9.44 K/mm3 (1.96-9.15); NEUTROPHILS PERCENT AUTO 84 % (41-73); NRBC ABSOLUTE 0.00 K/mm3 (0.00-0.02); NRBC Auto 0.0 /100 WBC (0.0-0.2); Platelet Count 262 K/mm3 (150-400); RDW Coefficient Variation 14.9 % (11.7-14.2); RDW Standard Deviation 48.0 fL (35.1-46.3)
[2025-01-12 06:38] LABS: Alanine Aminotransfer (ALT/SGP 18.0 U/L (12-78); Albumin, Blood 1.3 g/dL (3.4-5.0); Albumin/Globulin Ratio 0.4 (0.8-1.8); Anion Gap 9.0 mmol/L (3-11); Aspartate Aminotrans (AST/SGOT 31.0 U/L (12-37); Bilirubin, Total 0.4 mg/dL (0.1-1.0); Blood Urea Nitrogen 22.0 mg/dL (8-24); CO2, Blood 22.0 mmol/L (21-32); Calcium, Blood 7.0 mg/dL (8.5-10.1); Chloride, Blood 112.0 mmol/L (98-108); Creatinine, Blood 1.69 mg/dL (0.40-1.00); Globulin, Blood 3.1 g/dL (2.2-4.0); Glucose, Blood 101.0 mg/dL (70-99); Magnesium, Blood 1.5 mg/dL (1.6-2.4); Phosphorus, Blood 3.6 mg/dL (2.5-4.9); Potassium, Blood 2.9 mmol/L (3.5-5.5); Sodium, Blood 140.0 mmol/L (136-145); Total Protein, Blood 4.4 g/dL (6.4-8.2)
[2025-01-12] MEDS ORDERED: NS 500 ML IV SCH (10:10)
--- NOTE | 2025-01-12 15:07 | NUR ---
PO INTAKE PT ATE SOME FRIES AND CHICKEN NUGGETS FRIENDS BROUGHT IN.
[2025-01-12 16:45] LABS: BASOPHILS ABSOLUTE AUTO 0.02 K/mm3 (0.00-0.23); BASOPHILS PERCENT AUTO 0 % (0-2); EOSINOPHILS ABSOLUTE AUTO 0.06 K/mm3 (0.00-0.68); EOSINOPHILS PERCENT AUTO 1 % (0-6); Hematocrit 25.4 % (33.0-51.0); Hemoglobin 8.9 g/dL (11.5-16.0); IMMATURE GRAN ABSOLUTE AUTO 0.11 K/mm3 (0.00-0.10); IMMATURE GRAN PERCENT AUTO 1 % (0-1); LYMPHOCYTES ABSOLUTE AUTO 0.73 K/mm3 (0.84-5.20); LYMPHOCYTES PERCENT AUTO 7 % (21-46); MONOCYTES ABSOLUTE AUTO 0.61 K/mm3 (0.16-1.47); MONOCYTES PERCENT AUTO 5 % (4-13); Mean Corpuscular HGB Conc 35.0 g/dL (31.5-36.5); Mean Corpuscular Volume 88 fL (80-100); NEUTROPHILS ABSOLUTE AUTO 9.73 K/mm3 (1.96-9.15); NEUTROPHILS PERCENT AUTO 86 % (41-73); NRBC ABSOLUTE 0.00 K/mm3 (0.00-0.02); NRBC Auto 0.0 /100 WBC (0.0-0.2); Platelet Count 259 K/mm3 (150-400); RDW Coefficient Variation 14.7 % (11.7-14.2); RDW Standard Deviation 46.8 fL (35.1-46.3)
[2025-01-12 17:05] LABS: Anion Gap 8.0 mmol/L (3-11); Blood Urea Nitrogen 22.0 mg/dL (8-24); CO2, Blood 22.0 mmol/L (21-32); Calcium, Blood 6.7 mg/dL (8.5-10.1); Chloride, Blood 112.0 mmol/L (98-108); Creatinine, Blood 1.42 mg/dL (0.40-1.00); Glucose, Blood 109.0 mg/dL (70-99); Potassium, Blood 2.9 mmol/L (3.5-5.5); Sodium, Blood 139.0 mmol/L (136-145)
--- NOTE | 2025-01-12 18:10 | NUR ---
SUMMARY PT REC'D 1 UNIT PRBCS AND KCL THIS SHIFT. PT WAS VERY FATIGUED T/O DAY. HGB POST TRANSFUSION WAS 8.9. POTASSIUM REMAINED AT 2.9. DR DOMINGUEZ NOTIFIED AND ORDERS OBTAINED FOR ADDITIONAL 40 MEQ IV. PT ON TELE. PICC LINE PLACED THIS AM. PT DID EAT SOME CHICKEN NUGGETS AND FRIES FRIENDS BROUGHT IN WELL DRANK A SMALL AMOUNT OF SODA W/O ANY N/V. HIMA CONTINUES TO PUT OUT SS DRAINAGE. OSTOMY PUTTING OUT THIN BROWN LIQUID. REPOSITIONED PT DURING SHIFT. CALL LIGHT IN REACH.
--- NOTE | 2025-01-13 00:32 | NUR ---
UPDATE ASSESSED OSTOMY APPLIANCE, LEAKING OF CONTENTS NOTED, APPLIANCE CHANGED. HIMA DRAIN ASSESSED, MODERATED DRAINAGE NOTED ON DRESSING, DRESSING CHANGED. PT TOLERATED WELL.
[2025-01-13 05:27] VITALS: BP 143/63
[2025-01-13 05:54] LABS: BASOPHILS ABSOLUTE AUTO 0.02 K/mm3 (0.00-0.23); BASOPHILS PERCENT AUTO 0 % (0-2); EOSINOPHILS ABSOLUTE AUTO 0.06 K/mm3 (0.00-0.68); EOSINOPHILS PERCENT AUTO 1 % (0-6); Hematocrit 23.3 % (33.0-51.0); Hemoglobin 8.1 g/dL (11.5-16.0); IMMATURE GRAN ABSOLUTE AUTO 0.10 K/mm3 (0.00-0.10); IMMATURE GRAN PERCENT AUTO 1 % (0-1); LYMPHOCYTES ABSOLUTE AUTO 0.96 K/mm3 (0.84-5.20); LYMPHOCYTES PERCENT AUTO 10 % (21-46); MONOCYTES ABSOLUTE AUTO 0.63 K/mm3 (0.16-1.47); MONOCYTES PERCENT AUTO 6 % (4-13); Mean Corpuscular HGB Conc 34.8 g/dL (31.5-36.5); Mean Corpuscular Volume 87 fL (80-100); NEUTROPHILS ABSOLUTE AUTO 8.30 K/mm3 (1.96-9.15); NEUTROPHILS PERCENT AUTO 82 % (41-73); NRBC ABSOLUTE 0.00 K/mm3 (0.00-0.02); NRBC Auto 0.0 /100 WBC (0.0-0.2); Platelet Count 262 K/mm3 (150-400); RDW Coefficient Variation 14.7 % (11.7-14.2); RDW Standard Deviation 46.6 fL (35.1-46.3)
[2025-01-13 06:13] LABS: Alanine Aminotransfer (ALT/SGP 16.0 U/L (12-78); Albumin, Blood 1.5 g/dL (3.4-5.0); Albumin/Globulin Ratio 0.5 (0.8-1.8); Anion Gap 8.0 mmol/L (3-11); Aspartate Aminotrans (AST/SGOT 33.0 U/L (12-37); Bilirubin, Total 0.5 mg/dL (0.1-1.0); Blood Urea Nitrogen 20.0 mg/dL (8-24); CO2, Blood 23.0 mmol/L (21-32); Calcium, Blood 6.7 mg/dL (8.5-10.1); Chloride, Blood 113.0 mmol/L (98-108); Creatinine, Blood 1.2 mg/dL (0.40-1.00); Globulin, Blood 2.8 g/dL (2.2-4.0); Glucose, Blood 103.0 mg/dL (70-99); Magnesium, Blood 1.5 mg/dL (1.6-2.4); Phosphorus, Blood 3.0 mg/dL (2.5-4.9); Potassium, Blood 2.6 mmol/L (3.5-5.5); Sodium, Blood 141.0 mmol/L (136-145); Total Protein, Blood 4.3 g/dL (6.4-8.2)
[2025-01-13] MEDS ORDERED: Magnesium Sulf 2 GM/Water 50ML 50 ML IV ONE (06:40)
--- NOTE | 2025-01-13 06:43 | NUR ---
CALL TO PROVIDER ABNORMAL LAB RESULTS CALLED TO PROVIDER. ORDERS OBTAINED FOR IV MAGNESIUM AND POTASSIUM INFUSIONS WITH REDRAW AFTER COMPLETED. CALL TO ENGINEERING DOCUMENT CONTROL CLERK: SR AND SB WITH HEART RATE IN 50-60S WITH OCCASIONAL PVC REPORTED. PT HAS NO C/O CP OR SOB.
--- NOTE | 2025-01-13 06:47 | NUR ---
SHIFT SUMMARY POD 7 SIGMOID COLECTOMY W/OSTOMY. A&O X 4. PT TOLERATING PO INTAKE, DENIES NAUSEA. MIDLINE INCISION C/D/I. OSTOMY PRODUCING GREEN LIQUID OUTOUT. HIMA DRAIN PATENT AND PRODUCING COPIOUS AMOUNT OF SEROUS FLUID. PICC LINE PATENT CHG BATH THIS SHIFT. FLUID AND ELECTROLYTES ADMINISTERED PER EMAR. DWYER PATENT AND DRAINING YELLOW URINE TO GAVITY. PT RESTED THROUGHOUT SHIFT AND REPORTS FATIGUE. CALL WITHIN REACH.
[2025-01-13 08:04] VITALS: BP 139/78
[2025-01-13] MEDS ORDERED: Magnesium Sul 4 GM/Water100 ML 100 ML IV ONE (09:05)
[2025-01-13 13:26] LABS: Creatinine, Body Fluid 1.17 mg/dL
[2025-01-13] MEDS ORDERED: TPN Consult Notification XX ONE (13:55)
[2025-01-13 14:38] LABS: Alanine Aminotransfer (ALT/SGP 21.0 U/L (12-78); Albumin, Blood 1.6 g/dL (3.4-5.0); Albumin/Globulin Ratio 0.6 (0.8-1.8); Anion Gap 7.0 mmol/L (3-11); Aspartate Aminotrans (AST/SGOT 41.0 U/L (12-37); Bilirubin, Total 0.5 mg/dL (0.1-1.0); Blood Urea Nitrogen 21.0 mg/dL (8-24); CO2, Blood 23.0 mmol/L (21-32); Calcium, Blood 6.9 mg/dL (8.5-10.1); Chloride, Blood 110.0 mmol/L (98-108); Creatinine, Blood 1.08 mg/dL (0.40-1.00); Globulin, Blood 2.9 g/dL (2.2-4.0); Glucose, Blood 192.0 mg/dL (70-99); Potassium, Blood 2.9 mmol/L (3.5-5.5); Sodium, Blood 137.0 mmol/L (136-145); Total Protein, Blood 4.5 g/dL (6.4-8.2)
[2025-01-13 14:39] LABS: Magnesium, Blood 3.5 mg/dL (1.6-2.4)
[2025-01-13 15:37] VITALS: BP 135/67
[2025-01-13] MEDS ORDERED: Parenteral Electolytes 40 ML,Potassium Phosphate Dibasic 30 MM,Multivitamins 10 ML,ZINC... IV SCH (17:00)
--- NOTE | 2025-01-13 17:26 | NUR ---
PATIENT ALERT X4. WORKED WITH PT TO STAND AT BED, ABLE TO HELP TURN. DENIES PAIN. ON ROOM AIR WITH OCCASIONAL COUGHT. ON A MINCED AND MOIST DIET WITH SMALL PILLS WHOLE WITH H20. MIDLINE INCISSION KATERINE ARE INTACT. OSTOMY IS BEAFY RED AND DRAING WITH NEW APPLIANCE APPLIED TODAY. HIMA BOLES IS TO BULB SUCTION AND IS DRAINING 650 SO FAR THIS SHIFT OF CLEAR YELLOWISH FLUID. TPN IS RUNNING AT 94 AND POTASSIUM PHARMACY SLOWED DOWN TO 54.
[2025-01-13] MEDS ORDERED: Ampicillin Sod/Sulbactam Sod 3 GM in NS 100 ML IV SCH (18:00)
[2025-01-13 18:15] VITALS: BP 147/79
[2025-01-13 19:50] VITALS: BP 145/84
[2025-01-14] VITALS (7 sets, daily range): BP systolic 114–145; BP diastolic 16–110
[2025-01-14 05:17] LABS: BASOPHILS ABSOLUTE AUTO 0.02 K/mm3 (0.00-0.23); BASOPHILS PERCENT AUTO 0 % (0-2); EOSINOPHILS ABSOLUTE AUTO 0.09 K/mm3 (0.00-0.68); EOSINOPHILS PERCENT AUTO 1 % (0-6); Hematocrit 22.8 % (33.0-51.0); Hemoglobin 7.9 g/dL (11.5-16.0); IMMATURE GRAN ABSOLUTE AUTO 0.11 K/mm3 (0.00-0.10); IMMATURE GRAN PERCENT AUTO 1 % (0-1); LYMPHOCYTES ABSOLUTE AUTO 0.96 K/mm3 (0.84-5.20); LYMPHOCYTES PERCENT AUTO 10 % (21-46); MONOCYTES ABSOLUTE AUTO 0.71 K/mm3 (0.16-1.47); MONOCYTES PERCENT AUTO 7 % (4-13); Mean Corpuscular HGB Conc 34.6 g/dL (31.5-36.5); Mean Corpuscular Volume 87 fL (80-100); NEUTROPHILS ABSOLUTE AUTO 7.67 K/mm3 (1.96-9.15); NEUTROPHILS PERCENT AUTO 80 % (41-73); NRBC ABSOLUTE 0.00 K/mm3 (0.00-0.02); NRBC Auto 0.0 /100 WBC (0.0-0.2); Platelet Count 260 K/mm3 (150-400); RDW Coefficient Variation 14.9 % (11.7-14.2); RDW Standard Deviation 47.5 fL (35.1-46.3)
--- NOTE | 2025-01-14 05:52 | NUR ---
SHIFT SUMMARY PT WITH PPN AND POTASSIUM RUNNING DURING FIRST PART OF NOC SHIFT. PT LABS DRAWN VIA PICC; AWAITING RESULTS. PT ASSISTED TO WASH HAIR PER REQUEST AND REPOSITIONED THROUGHOUT SHIFT. PT EDEMA LESSENED TO BILATERAL FEET COMPARED TO LAST NOC SHIFT. PT HIMA OUTPUT LESSENED COMPARED TO LAST NOC SHIFT. PT DENIES CP, SOB. PT REMAINS ON TELE. PT OSTOMY WITH MODERATE GREEN LIQUID DISCHARGE. PT STOMA RED, BEEFY AND APPLIANCE CURRENTLY CDI. PT ANTICIPATES FRIENDS BRINGING HER MORE FOOD TODAY.
[2025-01-14 06:11] LABS: Albumin, Blood 1.4 g/dL (3.4-5.0); Anion Gap 6 mmol/L (3-11); Blood Urea Nitrogen 22 mg/dL (8-24); CO2, Blood 25 mmol/L (21-32); Calcium, Blood 6.9 mg/dL (8.5-10.1); Chloride, Blood 108 mmol/L (98-108); Creatinine, Blood 0.93 mg/dL (0.40-1.00); Ferritin, Serum 1096 ng/mL (8-252); Glucose, Blood 151 mg/dL (70-99); Magnesium, Blood 2.5 mg/dL (1.6-2.4); Phosphorus, Blood 3.2 mg/dL (2.5-4.9); Potassium, Blood 3.0 mmol/L (3.5-5.5); Sodium, Blood 136 mmol/L (136-145); Total Iron Binding Capacity 100 ug/dL (250-450)
[2025-01-14] MEDS ORDERED: Potassium Chl 20MEQ/Water100ML 100 ML IV SCH (08:45)
[2025-01-14] MEDS ORDERED: Enoxaparin 40 MG/0.4 ML SYR SC SCH (09:00)
[2025-01-14] MEDS ORDERED: TPN Consult Notification XX ONE (11:35)
--- NOTE | 2025-01-14 13:50 | NUR ---
REPORT GIVEN TO KEENAN.
--- NOTE | 2025-01-14 15:13 | NUR ---
pt transferred to [facility] notified
[2025-01-14] MEDS ORDERED: Parenteral Electolytes 40 ML,Potassium Phosphate Dibasic 30 MM,Multivitamins 10 ML,ZINC... IV SCH (17:00)
--- NOTE | 2025-01-14 17:55 | NUR ---
PT HAS HAD NO ACUTE CHANGES. PT SAT UP IN CHAIR TILL RIGHT BEFORE DINNER. PT REQUESTED TO BE MOVED BACK TO BED AND DID WELL A ONE ASSIST. NO DISTRESS NOTED. COLOSTOMY BAG INTACT AND DWYER IS PATIENT. WILL CONTINUE TO MONITOR.
[2025-01-15 04:24] VITALS: BP 109/57
[2025-01-15 04:49] LABS: BASOPHILS ABSOLUTE AUTO 0.03 K/mm3 (0.00-0.23); BASOPHILS PERCENT AUTO 0 % (0-2); EOSINOPHILS ABSOLUTE AUTO 0.13 K/mm3 (0.00-0.68); EOSINOPHILS PERCENT AUTO 1 % (0-6); Hematocrit 22.0 % (33.0-51.0); Hemoglobin 7.5 g/dL (11.5-16.0); IMMATURE GRAN ABSOLUTE AUTO 0.12 K/mm3 (0.00-0.10); IMMATURE GRAN PERCENT AUTO 1 % (0-1); LYMPHOCYTES ABSOLUTE AUTO 1.12 K/mm3 (0.84-5.20); LYMPHOCYTES PERCENT AUTO 10 % (21-46); MONOCYTES ABSOLUTE AUTO 0.69 K/mm3 (0.16-1.47); MONOCYTES PERCENT AUTO 6 % (4-13); Mean Corpuscular HGB Conc 34.1 g/dL (31.5-36.5); Mean Corpuscular Volume 87 fL (80-100); NEUTROPHILS ABSOLUTE AUTO 9.16 K/mm3 (1.96-9.15); NEUTROPHILS PERCENT AUTO 81 % (41-73); NRBC ABSOLUTE 0.00 K/mm3 (0.00-0.02); NRBC Auto 0.0 /100 WBC (0.0-0.2); Platelet Count 249 K/mm3 (150-400); RDW Coefficient Variation 15.3 % (11.7-14.2); RDW Standard Deviation 49.3 fL (35.1-46.3)
[2025-01-15 05:06] LABS: Anion Gap 9.0 mmol/L (3-11); Blood Urea Nitrogen 31.0 mg/dL (8-24); CO2, Blood 26.0 mmol/L (21-32); Calcium, Blood 6.9 mg/dL (8.5-10.1); Chloride, Blood 107.0 mmol/L (98-108); Creatinine, Blood 0.8 mg/dL (0.40-1.00); Glucose, Blood 118.0 mg/dL (70-99); Potassium, Blood 3.5 mmol/L (3.5-5.5); Sodium, Blood 138.0 mmol/L (136-145)
--- NOTE | 2025-01-15 05:09 | NUR ---
SHIFT SUMMARY PT IS A&OX4, PLEASANT AND COOPERATIVE WITH CARE. NO ACUTE CHANGES THIS SHIFT. HIMA DRAIN DRAINING SERASANGINOUS FLUID. OSTOMY IN THE LLQ IS DRAINING BROWN/GREEN LIQUIDS. DWYER IS DRAINING YELLOW URINE TO GRAVITY. PT RESTED T/O SHIFT WITH EVEN AND UNLABORED RESPIRATION, BED IN THE LOWEST POSITION, AND CALL LIGHT WITHIN REACH.
[2025-01-15 07:28] VITALS: BP 119/59
[2025-01-15] MEDS ORDERED: Folic Acid 1 MG TAB PO SCH (09:00)
[2025-01-15 11:56] VITALS: BP 125/69
[2025-01-15 15:57] VITALS: BP 125/69
--- NOTE | 2025-01-15 18:16 | NUR ---
SHIFT SUMMARY- PT ALERT AND ORIENTED, SHE REFUSES TO EAT ANY FOOD PROVIDED BY THE HOSPITAL, BUT HER APPETITE HAS IMPROVED AND SHE NOW EATS WHAT HER FRIENDS BRING TO HER TO EAT, SHE ATE IT ALL TODAY. PT IS STILL RUNNING CPN THROUGH HER PICC LINE, DRESSING CHANGE DONE ON THE PICC TODAY PER PROTOCOL. PT IS IN BED, +3-4 PITTING EDEMA IN BLE, HOWEVER FEET HAVE IMPROVED TODAY, SHE NOW HAS "TOES VISIBLE" HER TOES ARE NOT SWOLLEN, THE SWELLING HAS SETTLED INTO THE BACK OF THE FOOT AND ANKLE. PT IS IN BED, SOFT TOUCH CALL LIGHT IN REACH NO S&S OF DISTRESS NOTED. WILL PASS ON IN BEDSIDER REPORT TO NIGHT RN.
[2025-01-15 19:40] VITALS: BP 128/69
[2025-01-15 23:29] VITALS: BP 132/62
--- NOTE | 2025-01-15 23:55 | NUR ---
PROVIDER NOTIFIED PT HIMA DRAINING WHITE "MILKY" COLOR 180ML CHANGE FROM PINK SEROSANGANOUS , OSOTOMY CONTINUES TO PRODUCE SOME STOOL, WILI SR 80'S, LUNGS CLEAR T/O PLAN TO WAIT FOR SURGERY MONITOR DRAINAGE
[2025-01-16 04:50] VITALS: BP 125/71
[2025-01-16 06:03] LABS: BASOPHILS ABSOLUTE AUTO 0.03 K/mm3 (0.00-0.23); BASOPHILS PERCENT AUTO 0 % (0-2); EOSINOPHILS ABSOLUTE AUTO 0.11 K/mm3 (0.00-0.68); EOSINOPHILS PERCENT AUTO 1 % (0-6); Hematocrit 21.7 % (33.0-51.0); Hemoglobin 7.3 g/dL (11.5-16.0); IMMATURE GRAN ABSOLUTE AUTO 0.10 K/mm3 (0.00-0.10); IMMATURE GRAN PERCENT AUTO 1 % (0-1); LYMPHOCYTES ABSOLUTE AUTO 1.12 K/mm3 (0.84-5.20); LYMPHOCYTES PERCENT AUTO 10 % (21-46); MONOCYTES ABSOLUTE AUTO 0.65 K/mm3 (0.16-1.47); MONOCYTES PERCENT AUTO 6 % (4-13); Mean Corpuscular HGB Conc 33.6 g/dL (31.5-36.5); Mean Corpuscular Volume 89 fL (80-100); NEUTROPHILS ABSOLUTE AUTO 8.73 K/mm3 (1.96-9.15); NEUTROPHILS PERCENT AUTO 81 % (41-73); NRBC ABSOLUTE 0.00 K/mm3 (0.00-0.02); NRBC Auto 0.0 /100 WBC (0.0-0.2); Platelet Count 243 K/mm3 (150-400); RDW Coefficient Variation 15.6 % (11.7-14.2); RDW Standard Deviation 50.5 fL (35.1-46.3)
[2025-01-16 06:19] LABS: Anion Gap 9.0 mmol/L (3-11); Blood Urea Nitrogen 30.0 mg/dL (8-24); CO2, Blood 26.0 mmol/L (21-32); Calcium, Blood 7.2 mg/dL (8.5-10.1); Chloride, Blood 107.0 mmol/L (98-108); Creatinine, Blood 0.73 mg/dL (0.40-1.00); Glucose, Blood 97.0 mg/dL (70-99); Potassium, Blood 2.6 mmol/L (3.5-5.5); Sodium, Blood 139.0 mmol/L (136-145)
--- NOTE | 2025-01-16 06:35 | NUR ---
PODIATRIC TECHNICIAN SUMMARY PT A&OX4, VSS. ABLE TO COMMUNICATE NEEDS EFFECTIVELY. PT HAS BEEN ASLEEP ON AND OFF THIS SHIFT. CHEST RISE/RESPIRATIONS NOTED. REMAINS ON TELE. SR AT 63 W/ BBB. DWYER REMAINS IN PLACE, DRAINING CLEAR, YELLOW URINE TO GRAVITY. FREE OF KINKS/OBSTRUCTIONS. PROVIDER NOTIFIED BY BREAK RN OF MILKY WHITE COLORED DRAINAGE GOING INTO HIMA DRAIN. TOTAL OF 220 OF SUCH DRAINAGE AT TIME OF THIS NOTE. HIMA DRAIN CONTINUES TO HAVE MILKY WHITE OUTPUT. DR. SMALL CAME UP TO SEE PT. PER DR. SMALL, CONTINUE TO INF TPN PER EMAR AND MONITOR DRAINAGE. OSTOMY WNL W/ YELLOW/BROWN OUTPUT. TPN INF PER EMAR. BED RAILS UP X 2, BED IN LOWEST POSITION, BED WHEELS LOCKED, PERSONAL BELONGINGS AND CALL LIGHT WITHIN REACH FOR SAFETY.
[2025-01-16 08:00] VITALS: BP 132/60
--- NOTE | 2025-01-16 08:07 | NUR ---
ASSUMED CARE OF PT- PT OSTOMY APPLIANCE LEAKED, TAPE AND DRESSINGS COVERING THE PT ABD WERE ALL ASTURATED IN STOOL, WELL THE DRAIN SITE PADS. AREA THOROUGHLY CLEANED AND THE PT APPLIANCE WAS REMOVED AND REPLACED. SKIN AROUND THE STOMA WAS RED AN IRRITATED, AROUND TE DRAIN INSERTION WAS JULIUS RED AAND IRRITATED. DRAIN OUTPUT YESTERDAY WA CLEAR, TODAY IT IS CLEAR/CLOUDY MILKY WHITE. 80ML OF OUTPUT SINCE START OF SHIFT. PT DENIES PAIN, DERMAL KATERINE WERE CLEANED (THEY TOO WERE COVERED IN STOOL) APPLIANCE REPLACED AND PART OF IT COVERS SOME OF THE KATERINE, THE REMAINING DERMAL KATERINE ARE ASSEMBLER BONDING. NO NOTED SWELLING TO THE AREA, JUST KATELYN RED IRRITATED SKIN. WILL SPEAK TO DR BHANDARI WHEN SHE ROUNDS ON THE PT.
[2025-01-16 10:42] VITALS: BP 120/61
[2025-01-16 15:19] VITALS: BP 118/52
[2025-01-16 19:22] VITALS: BP 130/60
--- NOTE | 2025-01-16 20:07 | NUR ---
SHIFT SUMMARY- PT ALERT AND ORIENTED 1P SBA WITH AMBULATION. PT HAD A CHG BATH AT THE END OF THE SHIFT. HAIR WAS WASHED WITH A SHOWER CAP CATH CARE WAS COMPLETED AT THAT TIME WELL. PT IN BED AT THE TIME OF SHIFT CHANGE HIMA DRAIN AND OSTOMY APPLIANCE VISUALIZED AT THE TIME OF BEDSIDE REPORT, OSTOMY APPLIANCVE IS IN PLACE AND APPEARS IN TACT, HIMA DRAIN IS NOW DRAINING YELLOW PINK SEROUS FLUID. PT HAS HAD A LARGE AMOUNT OF OUTPUT FROM THE HIMA DRAIN APROXIMATELY 600ML OR SO (SEE I&O'S CHARTING FOR EXACT AMOUNT). PT IN BED, CALL LIGHT IN REACH NO S&S OF DISTRESS NOTED. DIETITIAN ORDERED DC OF CPN AT 1700. THIS EVENINGS DOSE WAS CHARTED NOT GIVEN, THAT WAS THE ORDER FROM THE DIETITIAN. BEDSIDE REPORT COMPLETED WITH NIGHT RN.
[2025-01-16] MEDS ORDERED: Potassium Chl 20MEQ/Water100ML 100 ML IV ONE (22:00)
[2025-01-16 23:31] VITALS: BP 140/62
[2025-01-17] VITALS (13 sets, daily range): BP systolic 129–165; BP diastolic 59–86
--- NOTE | 2025-01-17 06:49 | NUR ---
PEDIATRIC DIETICIAN SUMMARY NO ACUTE CHANGES. 665 MLS OUT OF HIMA DRAIN IN THE LAST 24 HOURS. PT HAVING LOOSE BROWN STOOLS THRU HER OSTOMY. 875 OUT IN THE LAST 24 HOURS. PT ON TELE, ONE EVENT OF 5 SECOND RUN OF SVT. PT ASYMPTOMATIC. CALL TO HOSPITALIST, SPOKE TO VINEET. PT DID NOT WANT TO TAKE THE ORAL POTASSIUM. SHE REQUESTED IV REPLACEMENT DUE TO UPSET STOMACH/NOT TOLERATING ORAL MED. NEW ORDER FOR 20MEQ IV. MED THRU PICC LINE. PT TOLERATED WELL. PT ABLE TO MAKE NEEDS KNOWN. CALL LIGHT ACCESSIBLE. REGULAR INTERVAL ROUNDING AND CARE ONGOING.
[2025-01-17 06:50] LABS: BASOPHILS ABSOLUTE AUTO 0.05 K/mm3 (0.00-0.23); BASOPHILS PERCENT AUTO 1 % (0-2); EOSINOPHILS ABSOLUTE AUTO 0.11 K/mm3 (0.00-0.68); EOSINOPHILS PERCENT AUTO 1 % (0-6); Hematocrit 20.1 % (33.0-51.0); Hemoglobin 6.7 g/dL (11.5-16.0); IMMATURE GRAN ABSOLUTE AUTO 0.11 K/mm3 (0.00-0.10); IMMATURE GRAN PERCENT AUTO 1 % (0-1); LYMPHOCYTES ABSOLUTE AUTO 1.19 K/mm3 (0.84-5.20); LYMPHOCYTES PERCENT AUTO 16 % (21-46); MONOCYTES ABSOLUTE AUTO 0.64 K/mm3 (0.16-1.47); MONOCYTES PERCENT AUTO 8 % (4-13); Mean Corpuscular HGB Conc 33.3 g/dL (31.5-36.5); Mean Corpuscular Volume 91 fL (80-100); NEUTROPHILS ABSOLUTE AUTO 5.54 K/mm3 (1.96-9.15); NEUTROPHILS PERCENT AUTO 73 % (41-73); NRBC ABSOLUTE 0.00 K/mm3 (0.00-0.02); NRBC Auto 0.0 /100 WBC (0.0-0.2); Platelet Count 225 K/mm3 (150-400); RDW Coefficient Variation 15.7 % (11.7-14.2); RDW Standard Deviation 51.0 fL (35.1-46.3)
[2025-01-17 07:07] LABS: Anion Gap 8.0 mmol/L (3-11); Blood Urea Nitrogen 22.0 mg/dL (8-24); CO2, Blood 26.0 mmol/L (21-32); Calcium, Blood 7.2 mg/dL (8.5-10.1); Chloride, Blood 110.0 mmol/L (98-108); Creatinine, Blood 0.79 mg/dL (0.40-1.00); Glucose, Blood 78.0 mg/dL (70-99); Potassium, Blood 2.7 mmol/L (3.5-5.5); Sodium, Blood 141.0 mmol/L (136-145)
--- NOTE | 2025-01-17 07:36 | NUR ---
NURSE NOTE; PT'S LAB WORK SHOWING LOWERED HBG AND POTASSIUM LEVELS. DR. HOWELL NOTIFIED OF LAB RESULTS VIA PHONE CALL. DR. HOWELL ADVISED THAT SHE WILL PUT IN ORDERS.
[2025-01-17] MEDS ORDERED: Potassium Chl 20MEQ/Water100ML 100 ML IV SCH (07:45)
[2025-01-17] MEDS ORDERED: Banana Flakes/Tos 1 EA Powder Pack PO SCH (09:00)
[2025-01-17] MEDS ORDERED: Magnesium Sul 4 GM/Water100 ML 100 ML IV ONE (14:00)
[2025-01-17] MEDS ORDERED: Menthol/Methyl Salicylate Crm 85 GM TUBE TOP PRN (17:55)
--- NOTE | 2025-01-17 18:43 | NUR ---
SHIFT SUMMARY; PT A/OX4 AND ON BEDREST. PT GIVEN PRBCs AND K IV SUPPLEMENTATION AFTER DR. HOWELL WAS NOTIFIED. SEE PREVIOUS NURSE NOTE. PT TOLERATED WELL. PT EXPRESSES THAT SHE DOES NOT FEEL WELL TODAY. NEIGHBOR AT BEDSIDE VISITING. PALLIATIVE CARE ORDERS IN CHART. PT HAS S/SXS OF R KNEE PAIN. DR. HOWELL NOTIFIED AND TOPICAL OINTMENT ORDERED. CALLED PHARMACY TO PREPARE MEDICATION ADMINISTRATION TO PATIENT. BED IN LOWEST POSITION AND CALL LIGHT WITHIN REACH.
[2025-01-17] MEDS ORDERED: FentaNYL Citrate 50 MCG/ML 2 ML Injection IV PRN (20:45)
--- NOTE | 2025-01-18 02:51 | NUR ---
TELE EVENT AND HOSPITALIST CONTACT NOTIFIED AT 0220 BY [employer] ARTISTBRYSON OF 13 BEAT SVT IN THE 180'S. EARLIER NOTIFICATION OF 8 SEC SVT AT APROX 2037. PT ASSESSED EACH TIME AND DENIES SYMPTOMS. PLACED CALL TO HOSPITALIST, SPOKE TO DR SMALL. HE ADVISED CONT TO MONITOR AND DRAW MAG LEVEL WITH AM LABS. MAD ALREADY ORDERED. WILL CONT TO [facility].
[2025-01-18 03:20] VITALS: BP 167/73
--- NOTE | 2025-01-18 05:08 | NUR ---
HOSPITALIST CONTACT PT C/O OF 09/29 PAIN IN THE RIGHT KNEE LEG. INTERVENTIONS OF BRIAN APPLIED. PT HAS NOT BEEN GETTING PAIN MEDICATIONS. PT STATED TYLENOL WILL MAKE HER NAUSEOUS. ORDER GIVEN BY DR DAVEY FOR 25-50MCG FENTANYL Q4 PRN. INITAL DOSE GIVEN WITH GOOD EFFECT AT 2056. SECOND DOSE AT 243--PT REPORTED LITTLE RELIEF AND REQUESTED SOMETHING ELSE FOR PAIN. PT RIGHT LEG PAIN INCREASING IN DISCOMFORT AND BLOOD PRESSURE TRENDING UP. THE PT REPORTS SHE GENERALLY DOES NOT TAKE MEDICATIONS FOR PAIN BUT IS VISIBLY UNCOMFORTABLE--MOANING, WINCING, AND RESTLESS. THE RIGHT LEG IS MORE SWOLLEN THAN THE LEFT--WHICH HAS BEEN PREVIOUSLY CHARTED AND NOTED BY THE ATTENDING PHYSICIAN BUT THE INCREASED PAIN IS NEW. ADDITIONAL CALL PLACED TO HOSPITALIST. SPOKE TO DR SMALL REGARDING ABOVE CONCERNS. DR SMALL PLACED ORDER FOR 5MG OXYCODONE Q4 AND VENOUS DUPLEX FOR THE RIGHT LEG.
[2025-01-18 06:19] LABS: BASOPHILS ABSOLUTE AUTO 0.05 K/mm3 (0.00-0.23); BASOPHILS PERCENT AUTO 0 % (0-2); EOSINOPHILS ABSOLUTE AUTO 0.05 K/mm3 (0.00-0.68); EOSINOPHILS PERCENT AUTO 0 % (0-6); Hematocrit 26.8 % (33.0-51.0); Hemoglobin 9.0 g/dL (11.5-16.0); IMMATURE GRAN ABSOLUTE AUTO 0.11 K/mm3 (0.00-0.10); IMMATURE GRAN PERCENT AUTO 1 % (0-1); LYMPHOCYTES ABSOLUTE AUTO 0.67 K/mm3 (0.84-5.20); LYMPHOCYTES PERCENT AUTO 6 % (21-46); MONOCYTES ABSOLUTE AUTO 0.73 K/mm3 (0.16-1.47); MONOCYTES PERCENT AUTO 6 % (4-13); Mean Corpuscular HGB Conc 33.6 g/dL (31.5-36.5); Mean Corpuscular Volume 90 fL (80-100); NEUTROPHILS ABSOLUTE AUTO 9.79 K/mm3 (1.96-9.15); NEUTROPHILS PERCENT AUTO 86 % (41-73); NRBC ABSOLUTE 0.00 K/mm3 (0.00-0.02); NRBC Auto 0.0 /100 WBC (0.0-0.2); Platelet Count 223 K/mm3 (150-400); RDW Coefficient Variation 15.1 % (11.7-14.2); RDW Standard Deviation 49.6 fL (35.1-46.3)
[2025-01-18 06:43] LABS: Anion Gap 7.0 mmol/L (3-11); Blood Urea Nitrogen 14.0 mg/dL (8-24); CO2, Blood 27.0 mmol/L (21-32); Calcium, Blood 7.0 mg/dL (8.5-10.1); Chloride, Blood 106.0 mmol/L (98-108); Creatinine, Blood 0.73 mg/dL (0.40-1.00); Glucose, Blood 84.0 mg/dL (70-99); Magnesium, Blood 2.1 mg/dL (1.6-2.4); Potassium, Blood 2.8 mmol/L (3.5-5.5); Sodium, Blood 137.0 mmol/L (136-145)
[2025-01-18 07:33] VITALS: BP 138/65
[2025-01-18 11:14] VITALS: BP 140/69
--- NOTE | 2025-01-18 14:13 | NUR ---
NOTE PATIENT UNABLE TO TAKE POTASSIUM PILLS AFTER CUTTING THEM DOWN, PATIENT REFUSED TO TRY PUTTING THEM IN A FOOD SOURCE WELL. LIQUID ORDERED, PATIENT ATTEMPTING TO DRINK THIS.
--- NOTE | 2025-01-18 15:28 | NUR ---
NOTE PATIENT WAS ABLE TO TAKE ORAL LIQUID POTASSIUM.
[2025-01-18 16:22] VITALS: BP 132/78
--- NOTE | 2025-01-18 17:36 | NUR ---
CALLED AND REPORTED XRAY OF R KNEE RESULTS TO DR. STEIN. NO NEW ORDERS AT THIS TIME. FOLLOWED UP WITH DR. HOWELL ON WHERE WE WERE AT WITH THE ORTHO CONSULT.
--- NOTE | 2025-01-18 18:02 | NUR ---
END OF SHIFT NOTE PATIENT RESTING IN BED, A&O4, ABLE TO MAKE NEEDS KNOWN. WORKED WITH PHYSICAL THERAPY TODAY, SAT AT EDGE OF BED. FRIEND/FAMILY IN TODAY, BROUGHT THE PATIENT FOOD. LIQUID POTASSIUM GIVEN TO PATIENT, PATIENT UNABLE TO SWOLLOW POTASSIUM PILLS. ATTENDS IN PLACE, OSTOMY C/D/I, INCISION C/D/I AND WITHOUT PAIN. HIMA BULB DRAIN, DRAINING CLEAR/YELLOW LIQUID. DWYER IN PLACE DRAINING TO GRAVITY, CLEAR/YELLOW URINE. RIGHT KNEE STILL PAINFUL/SWOLLEN, ORTHO CONSULTED, XRAY DONE, RESULTS REPORTED TO DR DANIEL AND DR HOWELL. NO OTHER CONCERNS FOR THIS SHIFT.
[2025-01-18] MEDS ORDERED: Lidocaine 1%-Epineph 1:100000 20 ML MDV INFIL ONE (19:15)
[2025-01-18 20:17] LABS: BODY FLUID RBC 0.002 M/mm3 (0-0)
[2025-01-18 20:20] VITALS: BP 136/88
[2025-01-18 20:29] LABS: RBC Count, Synovial Fluid 2000 /mm3 (0-0)
[2025-01-18 20:30] LABS: WBC Count, Synovial Fluid 17010 /mm3 (0-180)
[2025-01-18 21:08] LABS: Color, Synovial Fluid Yellow (None-P Yel); Lymphs, Synovial Fluid 1 % (0-15); Monocytes/Macrophages, Synovia 7 % (0-65); Neutrophils, Synovial Fluid 92 % (0-24)
[2025-01-18 21:09] LABS: Appearance, Synovial Fluid Cloudy (Clear)
[2025-01-18 23:18] VITALS: BP 134/68
--- NOTE | 2025-01-19 04:21 | NUR ---
Shift Summary: AOx4 speech clear & able to make accurate needs known. Afebrile & all other VS WNL, c/o moderate (R) knee intermittent throbbing pain, relieved by 5 mg Oxycodone administered q4h PRN as ordered. Abdominal midline incision CDI, (R) side JPx1 draining small amount of straw-colored fluid, vail intact and draining adequate amount of clear yellow urine, (L) arm PICC intact & patent dressing at insertion site CDI, all caps changed earlier this shift. (R) knee synovial fluid aspirated by surgical MDs and specimen sent to lab, pt. tolerated procedure well. Stable & resting @ this time.
[2025-01-19 04:26] VITALS: BP 111/65
[2025-01-19 05:51] LABS: BASOPHILS ABSOLUTE AUTO 0.04 K/mm3 (0.00-0.23); BASOPHILS PERCENT AUTO 1 % (0-2); EOSINOPHILS ABSOLUTE AUTO 0.10 K/mm3 (0.00-0.68); EOSINOPHILS PERCENT AUTO 1 % (0-6); Hematocrit 24.3 % (33.0-51.0); Hemoglobin 8.1 g/dL (11.5-16.0); IMMATURE GRAN ABSOLUTE AUTO 0.05 K/mm3 (0.00-0.10); IMMATURE GRAN PERCENT AUTO 1 % (0-1); LYMPHOCYTES ABSOLUTE AUTO 1.07 K/mm3 (0.84-5.20); LYMPHOCYTES PERCENT AUTO 13 % (21-46); MONOCYTES ABSOLUTE AUTO 0.79 K/mm3 (0.16-1.47); MONOCYTES PERCENT AUTO 10 % (4-13); Mean Corpuscular HGB Conc 33.3 g/dL (31.5-36.5); Mean Corpuscular Volume 92 fL (80-100); NEUTROPHILS ABSOLUTE AUTO 6.24 K/mm3 (1.96-9.15); NEUTROPHILS PERCENT AUTO 75 % (41-73); NRBC ABSOLUTE 0.00 K/mm3 (0.00-0.02); NRBC Auto 0.0 /100 WBC (0.0-0.2); Platelet Count 213 K/mm3 (150-400); RDW Coefficient Variation 15.3 % (11.7-14.2); RDW Standard Deviation 51.4 fL (35.1-46.3)
[2025-01-19 06:20] LABS: Anion Gap 7.0 mmol/L (3-11); Blood Urea Nitrogen 16.0 mg/dL (8-24); CO2, Blood 27.0 mmol/L (21-32); Calcium, Blood 6.9 mg/dL (8.5-10.1); Chloride, Blood 108.0 mmol/L (98-108); Creatinine, Blood 0.78 mg/dL (0.40-1.00); Glucose, Blood 100.0 mg/dL (70-99); Potassium, Blood 4.2 mmol/L (3.5-5.5); Sodium, Blood 138.0 mmol/L (136-145)
[2025-01-19 07:44] VITALS: BP 126/77
[2025-01-19] MEDS ORDERED: Vancomycin (Pharmacy Consult) IV SCH (09:55)
[2025-01-19 10:58] VITALS: BP 120/69
[2025-01-19] MEDS ORDERED: CefTRIAXone Sodium 1,000 MG in NS 100 ML IV SCH (11:00)
--- NOTE | 2025-01-19 14:49 | NUR ---
ROUNDED ON PATIENT SHE WAS SITTING UP IN BED AND OPEN TO CONVERSATION. CALLED PATIENT NEIGHBOR JORDON PER HIS REQUEST. HE EXPRESSED CONCERNS ABOUT [facility] LIVING SITUATION. HE HAS BEEN HELPING HER ON A DAILY BASIS WITH MEDICATIONS AND THINGS. HE IS CONCERNED ABOUT HER ABLILITY TO CARE FOR HER OSTOMY AND HE IS NOT ABLE TO TAKE CARE OF IT HIMSELF. WE DISCUSSED POSSIBLE OPTIONS SUCH CARE FACILITY OR IN HOME CAREGIVERS, AND STARTING PROCESS OF RETIREMENT MEDICADE. PATIENTS DAUGHTER WILL BE UP MIDDLE OF THE WEEK, BUT IS AVALIABLE BY PHONE
[2025-01-19 15:17] VITALS: BP 135/81
--- NOTE | 2025-01-19 18:11 | NUR ---
END OF SHIFT NOTE PATIENT RESTING IN BED. A&O4, ABLE TO MAKE NEEDS KNOWN. PATIENT REFUSED ALL MEAL TRAYS TODAY AND REFUSED CLEAR LIQUIDS. PATIENTS FAMILY/FRIENDS BROUGHT FOOD TO HER, WHICH SHE DID EAT. ABX STARTED TODAY, PER ORDER. TURNING AND ADJUSTING PATIENT SHE ALLOWS. REFUSED TO GET OUT OF BED TODAY. HIMA DRAIN C/D/I, CLEAR/YELLOWISH FLUID. DWYER IN PLACE DRAINING TO GRAVITY, YELLOW CLOUDY URINE. OSTOMY IN PLACE, DARK LIQUID WITH SOME SOILD STOOL. STOOL SAMPLE SENT TODAY. ATTENDS IN PLACE FOR COMFORT. NO OTHER CONCERNS FOR THIS SHIFT.
[2025-01-19 20:36] VITALS: BP 137/65
[2025-01-20 00:09] VITALS: BP 123/73
--- NOTE | 2025-01-20 04:24 | NUR ---
SHIFT SUMMARY PATIENT IS ALERT AND ORIENTED. PATIENT HAS HAD NO ACUTE EVENTS THIS SHIFT. PATIENT HAS NO COMPLAINTS OF SOB, NAUSEA OR VOMITTING. PATIENT HAS HAD COMPLAINTS OF PAIN THIS SHIFT AND MEDICATED PER EMAR. PATIENT HAS ALLOWED STAFF TO REPOSITION HER THIS SHIFT. DWYER IN PLACE AND DRAINING TO GRAVITY. HIMA DRAINING CLEAR YELLOWISH FLUID. OSTOMY IN PLACE. BED IN LOCKED AND LOWEST POSITION. CALL LIGHT IN PLACE.
[2025-01-20 04:58] VITALS: BP 116/75
[2025-01-20 05:49] LABS: BASOPHILS ABSOLUTE AUTO 0.05 K/mm3 (0.00-0.23); BASOPHILS PERCENT AUTO 1 % (0-2); EOSINOPHILS ABSOLUTE AUTO 0.23 K/mm3 (0.00-0.68); EOSINOPHILS PERCENT AUTO 3 % (0-6); Hematocrit 25.5 % (33.0-51.0); Hemoglobin 8.3 g/dL (11.5-16.0); IMMATURE GRAN ABSOLUTE AUTO 0.06 K/mm3 (0.00-0.10); IMMATURE GRAN PERCENT AUTO 1 % (0-1); LYMPHOCYTES ABSOLUTE AUTO 1.10 K/mm3 (0.84-5.20); LYMPHOCYTES PERCENT AUTO 13 % (21-46); MONOCYTES ABSOLUTE AUTO 0.71 K/mm3 (0.16-1.47); MONOCYTES PERCENT AUTO 8 % (4-13); Mean Corpuscular HGB Conc 32.5 g/dL (31.5-36.5); Mean Corpuscular Volume 95 fL (80-100); NEUTROPHILS ABSOLUTE AUTO 6.28 K/mm3 (1.96-9.15); NEUTROPHILS PERCENT AUTO 75 % (41-73); NRBC ABSOLUTE 0.00 K/mm3 (0.00-0.02); NRBC Auto 0.0 /100 WBC (0.0-0.2); Platelet Count 224 K/mm3 (150-400); RDW Coefficient Variation 15.3 % (11.7-14.2); RDW Standard Deviation 52.8 fL (35.1-46.3)
[2025-01-20 06:08] LABS: Anion Gap 8.0 mmol/L (3-11); Blood Urea Nitrogen 13.0 mg/dL (8-24); CO2, Blood 26.0 mmol/L (21-32); Calcium, Blood 7.4 mg/dL (8.5-10.1); Chloride, Blood 110.0 mmol/L (98-108); Creatinine, Blood 0.75 mg/dL (0.40-1.00); Glucose, Blood 75.0 mg/dL (70-99); Magnesium, Blood 1.7 mg/dL (1.6-2.4); Potassium, Blood 4.3 mmol/L (3.5-5.5); Sodium, Blood 140.0 mmol/L (136-145)
[2025-01-20 07:37] VITALS: BP 151/73
[2025-01-20 09:00] LABS: Stool Occult Blood Guaiac 1 Neg (Neg)
[2025-01-20 11:26] VITALS: BP 160/84
[2025-01-20] MEDS ORDERED: Colchicine 0.6 MG TAB PO ONE (12:00)
[2025-01-20 15:43] VITALS: BP 139/73
--- NOTE | 2025-01-20 16:05 | NUR ---
SHIFT SUMMARY PT AOX4, COOPERATIVE, ABLE TO MAKE NEEDS KNOWN. PT HAS BEEN BEDREST MOST OF SHIFT. TOLERATING MEDICATIONS. PT WAS NPO PENDING PROCEDURE ALL MORNING. NPO RELEASE AT LUNCH TIME. PT WILL NOW BE NPO AT MIDNIGHT PENDING PROCEDURE TOMORROW. DWYER INTACT AND DRAINING TO GRAVITY. BED IN LOWEST POSITION, CALL LIGHT WITHIN REACH.
[2025-01-20 22:38] VITALS: BP 156/80
[2025-01-21 00:32] VITALS: BP 149/80
[2025-01-21 04:12] VITALS: BP 146/77
--- NOTE | 2025-01-21 05:05 | NUR ---
SHIFT SUMMARY; PT A/OX2-3 (SELF, PERSON, PLACE) W/ INTERMITTENT REDIRECTABLE CONFUSION AND BEDREST THROUGHOUT THIS SHIFT. PT HAS S/SXS OF 10/10 PAIN WITHIN HER R KNEE AND 2+ PITTING EDEMA SEEN WITHIN THE RLE. PT MEDICATED PER EMAR, REPOSITIONED AND COLD COMPRESSION APPLIED TO AREA. PT OBSERVED SLEEPING THEREAFTER. PT DEVELOPING LOW GRADE FEVER AROUND 0030, WHICH HAS RESOLVED TOWARDS THE END OF SHIFT. URIC ACID BLOOD TEST ORDERED WITH AM LABS. PT KEPT NPO AFTER MIDNIGHT FOR PROCEDURE. BED IN LOWEST POSITION AND CALL LIGHT WITHIN REACH.
[2025-01-21 06:53] LABS: BASOPHILS ABSOLUTE AUTO 0.06 K/mm3 (0.00-0.23); BASOPHILS PERCENT AUTO 1 % (0-2); EOSINOPHILS ABSOLUTE AUTO 0.27 K/mm3 (0.00-0.68); EOSINOPHILS PERCENT AUTO 3 % (0-6); Hematocrit 24.5 % (33.0-51.0); Hemoglobin 8.0 g/dL (11.5-16.0); IMMATURE GRAN ABSOLUTE AUTO 0.04 K/mm3 (0.00-0.10); IMMATURE GRAN PERCENT AUTO 1 % (0-1); LYMPHOCYTES ABSOLUTE AUTO 1.03 K/mm3 (0.84-5.20); LYMPHOCYTES PERCENT AUTO 12 % (21-46); MONOCYTES ABSOLUTE AUTO 0.52 K/mm3 (0.16-1.47); MONOCYTES PERCENT AUTO 6 % (4-13); Mean Corpuscular HGB Conc 32.7 g/dL (31.5-36.5); Mean Corpuscular Volume 94 fL (80-100); NEUTROPHILS ABSOLUTE AUTO 6.82 K/mm3 (1.96-9.15); NEUTROPHILS PERCENT AUTO 78 % (41-73); NRBC ABSOLUTE 0.00 K/mm3 (0.00-0.02); NRBC Auto 0.0 /100 WBC (0.0-0.2); Platelet Count 223 K/mm3 (150-400); RDW Coefficient Variation 14.8 % (11.7-14.2); RDW Standard Deviation 50.8 fL (35.1-46.3)
[2025-01-21 07:25] LABS: C-REACTIVE PROTEIN, EXT RANGE 18.0 mg/dL (0.000-0.300)
[2025-01-21 07:27] LABS: Uric Acid, Blood 3.4 mg/dL (2.6-6.0)
[2025-01-21 07:32] LABS: Alanine Aminotransfer (ALT/SGP 28.0 U/L (12-78); Albumin, Blood 1.4 g/dL (3.4-5.0); Albumin/Globulin Ratio 0.4 (0.8-1.8); Anion Gap 9.0 mmol/L (3-11); Aspartate Aminotrans (AST/SGOT 33.0 U/L (12-37); Bilirubin, Total 0.4 mg/dL (0.1-1.0); Blood Urea Nitrogen 11.0 mg/dL (8-24); CO2, Blood 25.0 mmol/L (21-32); Calcium, Blood 7.6 mg/dL (8.5-10.1); Chloride, Blood 108.0 mmol/L (98-108); Creatinine, Blood 0.69 mg/dL (0.40-1.00); Globulin, Blood 3.6 g/dL (2.2-4.0); Glucose, Blood 43.0 mg/dL (70-99); Potassium, Blood 3.7 mmol/L (3.5-5.5); Sodium, Blood 138.0 mmol/L (136-145); Total Protein, Blood 5.0 g/dL (6.4-8.2)
[2025-01-21 07:37] VITALS: BP 138/79
[2025-01-21] MEDS ORDERED: D5W-1/2NS 1,000 ML IV SCH (09:40)
[2025-01-21 10:49] LABS: Vancomycin, Trough 15.2 ug/mL (5.0-10.0)
[2025-01-21 15:29] VITALS: BP 131/74
--- NOTE | 2025-01-21 16:01 | NUR ---
SHIFT SUMMARY PT AOX3/4, SEMI COOPERATIVE WITH CARE, ABLE TO MAKE NEEDS KNOWN. PT HAS BEEN NPO SINCE MIDNIGHT (ELISABET BUTLER JUST MADE DIET CHANGE AT 1600). CBGS WERE LOW THIS AM IN 40'S, MD INFORMED, PLACED ORDER FOR D5 1/2NS AT 100ML/HR. CBGS IMPROVED. PT WENT FOR CT SCAN THIS EVENING. MD AWARE OF RESULTS. AWAITING ORTHO DECISION ON PROCEDURE OR NOT. OSTOMY APPLIANCE WAS CHANGED THIS AM DUE TO LEAKAGE. BED IN LOWEST POSITION, CALL LIGHT WITHIN REACH.
--- NOTE | 2025-01-21 16:42 | NUR ---
RALPH VERBALIZED FRUSTRATION REGARDING LENGTH OF STAY AND BEING NPO. DR. BHANDARI WAS ABLE TO CHANGE NPO ORDER. PLAN TO REVIEW AGAIN TOMORROW, THERE HAVEN'T BEEN ANY FINAL DECISIONS REGARDING KNEE WASH OUT.
[2025-01-21 19:25] VITALS: BP 141/70
[2025-01-22 00:10] VITALS: BP 150/79
[2025-01-22 03:29] VITALS: BP 143/89
[2025-01-22 04:55] LABS: BASOPHILS ABSOLUTE AUTO 0.05 K/mm3 (0.00-0.23); BASOPHILS PERCENT AUTO 1 % (0-2); EOSINOPHILS ABSOLUTE AUTO 0.35 K/mm3 (0.00-0.68); EOSINOPHILS PERCENT AUTO 6 % (0-6); Hematocrit 24.8 % (33.0-51.0); Hemoglobin 8.3 g/dL (11.5-16.0); IMMATURE GRAN ABSOLUTE AUTO 0.04 K/mm3 (0.00-0.10); IMMATURE GRAN PERCENT AUTO 1 % (0-1); LYMPHOCYTES ABSOLUTE AUTO 0.96 K/mm3 (0.84-5.20); LYMPHOCYTES PERCENT AUTO 15 % (21-46); MONOCYTES ABSOLUTE AUTO 0.47 K/mm3 (0.16-1.47); MONOCYTES PERCENT AUTO 7 % (4-13); Mean Corpuscular HGB Conc 33.5 g/dL (31.5-36.5); Mean Corpuscular Volume 91 fL (80-100); NEUTROPHILS ABSOLUTE AUTO 4.51 K/mm3 (1.96-9.15); NEUTROPHILS PERCENT AUTO 71 % (41-73); NRBC ABSOLUTE 0.00 K/mm3 (0.00-0.02); NRBC Auto 0.0 /100 WBC (0.0-0.2); Platelet Count 241 K/mm3 (150-400); RDW Coefficient Variation 14.5 % (11.7-14.2); RDW Standard Deviation 48.5 fL (35.1-46.3)
--- NOTE | 2025-01-22 05:21 | NUR ---
KILN BURNER SUMMARY PT A&OX3, VSS. ABLE TO COMMUNICATE NEEDS APPROPRIATELY. PT HAS BEEN ASLEEP FOR MOST OF THE NIGHT. CHEST RISE/RESPIRATIONS NOTED. REMAINS ON TELE. SR AT 86 W/ BBB. HIMA DRAIN WNL. DRAINED 40 ML OF CLEAR, YELLOW LIQUID. OSTOMY APPLIANCE INTACT. SCANT YELLOW, BROWN DRAINAGE NOTED COMING FROM BEEFY, RED STOMA. OXYCODONE ADMIN 1X FOR ABD PAIN W/ GOOD EFFECT. DWYER REMAINS IN PLACE. FREE OF KINKS/OBSTRUCTIONS. DRAINING CLEAR, YELLOW URINE TO GRAVITY. BED RAILS UP X 2, BED IN LOWEST POSITION, BED WHEELS LOCKED, PERSONAL BELONGINGS AND CALL LIGHT WITHIN REACH FOR SAFETY.
[2025-01-22 05:35] LABS: Alanine Aminotransfer (ALT/SGP 28.0 U/L (12-78); Albumin, Blood 1.5 g/dL (3.4-5.0); Albumin/Globulin Ratio 0.4 (0.8-1.8); Anion Gap 7.0 mmol/L (3-11); Aspartate Aminotrans (AST/SGOT 31.0 U/L (12-37); Bilirubin, Total 0.4 mg/dL (0.1-1.0); Blood Urea Nitrogen 6.0 mg/dL (8-24); CO2, Blood 28.0 mmol/L (21-32); Calcium, Blood 7.5 mg/dL (8.5-10.1); Chloride, Blood 104.0 mmol/L (98-108); Creatinine, Blood 0.66 mg/dL (0.40-1.00); Globulin, Blood 3.6 g/dL (2.2-4.0); Glucose, Blood 72.0 mg/dL (70-99); Potassium, Blood 2.9 mmol/L (3.5-5.5); Sodium, Blood 136.0 mmol/L (136-145); Thyroid Stimulating Hormone 6.2 uIU/mL (0.360-4.800); Total Protein, Blood 5.1 g/dL (6.4-8.2)
[2025-01-22 08:04] VITALS: BP 146/72
[2025-01-22 11:48] VITALS: BP 132/75
--- NOTE | 2025-01-22 13:16 | NUR ---
DR. BHANDARI IN TO SEE PT AND REPORTS PT IS READY TO DISCHARGE FROM HER STANDPOINT AND WILL REMOVE DRAIN PRIOR TO DISCHARGE. PT UP IN CHAIR NOW TALKING ON PHONE WITH NEPHEW.
[2025-01-22 16:44] VITALS: BP 136/68
--- NOTE | 2025-01-22 17:22 | NUR ---
End of shift summary: Patient is alert and oriented x2-3; tearful later this shift after discussion with palliative and family. All medications administered per EMAR as patient allowed. Denies SOB, CP or pressure, N/V/D this shift. Patient with continued pain tonight and medication administered per orders. Patient up with PT and OT today and sat in chair for 3 hours. Call light within reach, bed in lowest position. Will continue to monitor until next shift nurse arrives and report is given.
--- NOTE | 2025-01-22 17:52 | NUR ---
Patient remains tearful and very upset regarding conversation with palliative care and family. Patient refuses to let me change PICC dressing. Charge nurse notified and will discuss with oncoming shift nurse.
[2025-01-22 20:05] VITALS: BP 129/63
[2025-01-23 00:39] VITALS: BP 125/72
[2025-01-23 03:46] VITALS: BP 128/70
[2025-01-23 06:07] LABS: BASOPHILS ABSOLUTE AUTO 0.05 K/mm3 (0.00-0.23); BASOPHILS PERCENT AUTO 1 % (0-2); EOSINOPHILS ABSOLUTE AUTO 0.31 K/mm3 (0.00-0.68); EOSINOPHILS PERCENT AUTO 6 % (0-6); Hematocrit 24.7 % (33.0-51.0); Hemoglobin 8.2 g/dL (11.5-16.0); IMMATURE GRAN ABSOLUTE AUTO 0.03 K/mm3 (0.00-0.10); IMMATURE GRAN PERCENT AUTO 1 % (0-1); LYMPHOCYTES ABSOLUTE AUTO 1.10 K/mm3 (0.84-5.20); LYMPHOCYTES PERCENT AUTO 20 % (21-46); MONOCYTES ABSOLUTE AUTO 0.43 K/mm3 (0.16-1.47); MONOCYTES PERCENT AUTO 8 % (4-13); Mean Corpuscular HGB Conc 33.2 g/dL (31.5-36.5); Mean Corpuscular Volume 92 fL (80-100); NEUTROPHILS ABSOLUTE AUTO 3.51 K/mm3 (1.96-9.15); NEUTROPHILS PERCENT AUTO 65 % (41-73); NRBC ABSOLUTE 0.00 K/mm3 (0.00-0.02); NRBC Auto 0.0 /100 WBC (0.0-0.2); Platelet Count 246 K/mm3 (150-400); RDW Coefficient Variation 14.4 % (11.7-14.2); RDW Standard Deviation 48.2 fL (35.1-46.3)
[2025-01-23 06:37] LABS: Alanine Aminotransfer (ALT/SGP 27.0 U/L (12-78); Albumin, Blood 1.4 g/dL (3.4-5.0); Albumin/Globulin Ratio 0.4 (0.8-1.8); Anion Gap 8.0 mmol/L (3-11); Aspartate Aminotrans (AST/SGOT 33.0 U/L (12-37); Bilirubin, Total 0.5 mg/dL (0.1-1.0); Blood Urea Nitrogen 6.0 mg/dL (8-24); CO2, Blood 28.0 mmol/L (21-32); Calcium, Blood 7.5 mg/dL (8.5-10.1); Chloride, Blood 106.0 mmol/L (98-108); Creatinine, Blood 0.68 mg/dL (0.40-1.00); Globulin, Blood 3.8 g/dL (2.2-4.0); Glucose, Blood 93.0 mg/dL (70-99); Potassium, Blood 2.8 mmol/L (3.5-5.5); Sodium, Blood 139.0 mmol/L (136-145); Total Protein, Blood 5.2 g/dL (6.4-8.2)
--- NOTE | 2025-01-23 06:41 | NUR ---
SALES PRODUCER SUMMARY PT A&OX3, VSS. ABLE TO COMMUNICATE NEEDS APPROPRIATELY. PT HAS BEEN ASLEEP FOR MOST OF THE NIGHT. CHEST RISE/RESPIRATIONS NOTED. REMAINS ON TELE. SR AT 87 W/ BBB. HIMA DRAIN WNL. 20 ML OF CLEAR, YELLOW DRAINAGE NOTED THIS SHIFT. OSTOMY APPLIANCE REMAINS INTACT W/ GREENISH BROWN OUTPUT NOTED. 100 ML OF OUTPUT NOTED FOR OSTOMY BAG THIS SHIFT. REFUSED PICC LINE DRESSING CHANGE THIS SHIFT WELL DWYER REMOVAL PER PROVIDER ORDER. PT CONTINUES TO HAVE A DIFFICULT TIME W/ PALLIATIVE CARE CONVERSATION BUT STATES IS STARTING TO ACCEPT IT. BED RAILS UP X 2, BED IN LOWEST POSITION, BED WHEELS LOCKED, PERSONAL BELONGINGS AND CALL LIGHT WITHIN REACH FOR SAFETY.
[2025-01-23 07:48] VITALS: BP 152/71
[2025-01-23] MEDS ORDERED: ANAS1 PO (14:24)
[2025-01-23] MEDS ORDERED: NAPR500 PO (14:25)
--- NOTE | 2025-01-23 18:01 | NUR ---
NOTE: [facility] CONTACTED CARE MANAGEMENT WHO CONTACTED THIS NURSE TO SAY THEY ARE DELAYED DUE TO EMERGENCIES ONGOING IN THE COMMUNITY. THIS NURSE CONTACTED [facility] TO UPDATE THEM ON THE NEW TRANSPORT TIME. THEY AGREED AND WILL PASS ALONG THE INFORMATION TO THE NEXT SHIFT.
--- NOTE | 2025-01-23 18:21 | NUR ---
RN SHIFT SUMMARY: A&Ox4, CALLS APPROPRIATELY. GAVE MEDS PER EMAR. DWYER & HIMA DRAIN OUT DURING THIS SHIFT. OSTOMY IN PLACE WITH GREENISH OUTPUT NOTED. BED IN LOWEST POSITION. [facility]. CALL LIGHT WITHIN REACH.
--- NOTE | 2025-01-23 18:59 | NUR ---
DISCHARGE NOTE PT DISCHARGED TO [facility], PICKED UP BY [facility] ART [facility]. PERSONAL BELONGINGS RETURNED. [facility] AWARE OF THE DELAY, THIS NURSE SPOKE ON THE PHONE WITH THE FACILITY AT THE TIME OF THE NOTICE OF DELAY.
== END 2025-01-23 18:59 | DRG 330 ==
LOC: ER 09:56 → MEDS 13:56 → SURS 13:56 → MEDS 01-14 14:58
PROVIDERS: Family Medicine; Orthopaedic Surgery; Physician Assistant; Student in an Organized Health Care Education/Training Program; Surgery; ADMIT Internal Medicine
PROC: 0D1N0Z4 Bypass Sigmoid Colon to Cutaneous, Open Approach (ICD-10-PCS; 2025-01-06)
PROC: 30233N1 Transfusion of Nonautologous Red Blood Cells into Peripheral Vein, Percutaneous Approach (ICD-10-PCS; 2025-01-06)
PROC: 30233R1 Transfusion of Nonautologous Platelets into Peripheral Vein, Percutaneous Approach (ICD-10-PCS; 2025-01-06)
PROC: 3E03329 Introduction of Other Anti-infective into Peripheral Vein, Percutaneous Approach (ICD-10-PCS; 2025-01-06)
PROC: 0DTN0ZZ Resection of Sigmoid Colon, Open Approach (ICD-10-PCS; principal; 2025-01-06 14:30)
PROC: 30233J1 Transfusion of Nonautologous Serum Albumin into Peripheral Vein, Percutaneous Approach (ICD-10-PCS; 2025-01-10)
PROC: 02HV33Z Insertion of Infusion Device into Superior Vena Cava, Percutaneous Approach (ICD-10-PCS; 2025-01-12)
PROC: 3E0336Z Introduction of Nutritional Substance into Peripheral Vein, Percutaneous Approach (ICD-10-PCS; 2025-01-13)
PROC: 0S9C3ZZ Drainage of Right Knee Joint, Percutaneous Approach (ICD-10-PCS; 2025-01-18)
DX: K56.609 Unspecified intestinal obstruction, unspecified as to partial versus complete obstruction (principal); K57.20 Diverticulitis of large intestine with perforation and abscess without bleeding; R64 Cachexia; N17.9 Acute kidney failure, unspecified; M00.9 Pyogenic arthritis, unspecified; I10 Essential (primary) hypertension; E78.5 Hyperlipidemia, unspecified; E83.39 Other disorders of phosphorus metabolism; D64.9 Anemia, unspecified; E88.09 Other disorders of plasma-protein metabolism, not elsewhere classified; M81.0 Age-related osteoporosis without current pathological fracture; E87.6 Hypokalemia; M11.261 Other chondrocalcinosis, right knee; R60.0 Localized edema; E16.2 Hypoglycemia, unspecified; R50.9 Fever, unspecified; K52.9 Noninfective gastroenteritis and colitis, unspecified; Z66 Do not resuscitate; Z60.2 Problems related to living alone; Z86.73 Personal history of transient ischemic attack (TIA), and cerebral infarction without residual deficits; Z85.3 Personal history of malignant neoplasm of breast; Z68.23 Body mass index [BMI] 23.0-23.9, adult; Z90.11 Acquired absence of right breast and nipple; Z79.02 Long term (current) use of antithrombotics/antiplatelets; Z79.899 Other long term (current) drug therapy; Z90.49 Acquired absence of other specified parts of digestive tract; Z90.710 Acquired absence of both cervix and uterus; Z90.89 Acquired absence of other organs; Z91.018 Allergy to other foods; Z82.3 Family history of stroke; Z84.19 Family history of other disorders of kidney and ureter; Z82.49 Family history of ischemic heart disease and other diseases of the circulatory system; Z82.41 Family history of sudden cardiac death
CPT/HCPCS: 36415; 36569; 51702; 71045; 73560-RT; 73701; 74177; 76770; 80048; 80053; 80069; 80202; 82272; 82570; 82607; 82728; 82746; 82947; 83540; 83550; 83735; 83930; 83935; 84100; 84132; 84134; 84145; 84300; 84443; 84478; 84550; 85014; 85018; 85025; 85651; 86140; 86141; 86850; 86900; 86901; 86923; 87070; 87075; 87205; 87637; 88307; 89051; 89060; 92610; 93005; 93010; 93970; 93971; 94760; 96360-59; 97110; 97116; 97162; 97165; 97530; 97535; 99285-25; A9270; C1751; J0295; J0612; J0690; J0696; J1100; J1171; J1650; J2405; J2704; J2765; J3010; J3373; J3411; J3475; J3480; J7030; J7042; J7050; J7060; J7120; P9016; P9035; P9047; Q9967